=== PATIENT | male | born 1950 | race Caucasian/White ===

== ENCOUNTER 2016-08-29 10:12 | Outpatient (CLI) | payer MEDICARE | END 2016-08-29 10:13 | disposition home or self-care (01) | DX: M79.672 Pain in left foot (principal); M79.671 Pain in right foot; M77.32 Calcaneal spur, left foot; M77.31 Calcaneal spur, right foot; M19.072 Primary osteoarthritis, left ankle and foot; M19.071 Primary osteoarthritis, right ankle and foot ==

== ENCOUNTER 2017-01-02 12:54 | Outpatient (CLI) | payer MEDICARE | END 2017-01-02 12:55 | disposition home or self-care (01) | LOC: NS 12:54 | PROVIDERS: ATTEND Urology | DX: Z71.3 Dietary counseling and surveillance (principal); N17.9 Acute kidney failure, unspecified; N20.0 Calculus of kidney; Z68.32 Body mass index [BMI] 32.0-32.9, adult | CPT/HCPCS: 97802 ==

== ENCOUNTER 2017-02-03 11:56 | Inpatient (IN) | payer MEDICARE ==
[2017-02-03] MEDS ORDERED: SODIUM CHLORIDE 0.9% 1,000 ML IV ONE (12:57)
[2017-02-03] MEDS ORDERED: cefTRIAXone 1 GM in SODIUM CHLORIDE 0.9% MINIBAG 100 ML IV STA (12:57)
--- NOTE | 2017-02-03 13:00 | ED Physician Documentation ---
PD HPI DYSPNEA - Stated complaint Stated Complaint: SOA - Chief complaint Chief Complaint: Resp - History obtained from History obtained from: Patient, Family - History of Present Illness Timing - onset: How many days ago (4) Timing - onset during: Rest Timing - duration: Days (4) Timing - details: Gradual onset, Still present Inciting event(s): URI Improved by: O2, Rest Worsened by: Exertion, Coughing Associated symptoms: Fever, Cough, Hemoptysis Similar symptoms before: Diagnosis (pneumonia) Recently seen: Clinic (sent here from the clinic by Dr. Martinez) - Additional information Additional information: 67-year-old male on Humira for Crohn's disease has developed a cough andAbout 4 days ago he has had persistence of this he has had fever he has had some blood- tinged sputum he has had some blood in his urine he has had a bit of nausea and vomiting and he has a bit of a headache. He has improvement with oxygen administered here in the emergency department. He was seen by his PMD today and she sent him here for evaluation. Review of Systems Constitutional: reports: Fever, Chills, Myalgias, Fatigue, Sweats Eyes: denies: Decreased vision Ears: denies: Ear pain Nose: denies: Rhinorrhea / runny nose, Congestion Throat: denies: Sore throat Cardiac: denies: Chest pain / pressure, Palpitations Respiratory: reports: Dyspnea, Cough GI: reports: Nausea, Vomiting. denies: Abdominal Pain : reports: Hematuria. denies: Dysuria, Frequency Skin: denies: Rash Musculoskeletal: denies: Neck pain, Back pain, Extremity pain Neurologic: reports: Generalized weakness, Headache. denies: Focal weakness, Numbness, Head injury, LOC PD PAST MEDICAL HISTORY - Past Medical History Cardiovascular: Hypertension Respiratory: None Neuro: Fainting Endocrine/Autoimmune: None GI: Colon polyps HEENT: None Psych: None Musculoskeletal: Gout Derm: 11 - Past Surgical History Past Surgical History: Yes General: Appendectomy, Hiatal hernia repair Ortho: Spine surgery - Present Medications Home Medications: Ambulatory Orders Medication Instructions Recorded Confirmed Allopurinol [Zyloprim] 100 mg PO DAILY 10/14/12 02/03/17 B12 1 tab ORAL DAILY 10/14/12 02/03/17 Metoprolol Succinate [Toprol Xl] 25 mg PO BID 10/14/12 02/03/17 Adalimumab [Humira] 40 mg SQ DAILY 02/03/17 02/03/17 Calcium Citrate 200 mg PO DAILY 02/03/17 02/03/17 Oxybutynin Chloride [Ditropan Xl] 15 mg PO DAILY 02/03/17 02/03/17 Tamsulosin [Flomax] 0.4 mg PO DAILY 02/03/17 02/03/17 - Allergies Allergies/Adverse Reactions: Allergies Allergy/AdvReac Type Severity Reaction Status Date / Time No Known Drug Allergies Allergy Verified 02/03/17 12:12 - Social History Does the pt smoke?: Yes Smoking Status: Former smoker Does the pt drink ETOH?: Yes Does the pt have substance abuse?: No - Immunizations Immunizations are current?: Yes - POLST Patient has POLST: No PD ED PE NORMAL - Vitals Vital signs reviewed: Yes (Febrile and hypertensive) - General General: Alert and oriented X 3, Well developed/nourished, Other (The patient appears flushed.) - HEENT HEENT: Atraumatic, PERRL, EOMI, Other (The right TM is erythematous along the umbo with rounding of the umbo the left is clear the pharynx is with dry mucous membranes.) - Neck Neck: Supple, no meningeal sign, No bony TTP - Cardiac Cardiac: RRR, No murmur - Respiratory Respiratory: Other (Tachypnea at rest with rhonchi in the left base.) - Abdomen Abdomen: Normal bowel sounds, Soft, Non tender, No organomegaly - Back Back: No CVA TTP, No spinal TTP - Derm Derm: Normal color, Warm and dry, No rash - Extremities Extremities: No deformity, No edema - Neuro Neuro: No motor deficit, No sensory deficit, Normal speech - Psych Psych: Normal mood, Normal affect Results - Vitals Vitals: Vital Signs - 24 hr 02/03/17 02/03/17 02/03/17 12:07 12:35 12:57 Temperature 38.6 C H Heart Rate 100 96 Respiratory 22 28 H 20 Rate Blood Pressure 139/69 H 148/61 H O2 Saturation 94 91 L 96 02/03/17 13:33 Temperature 39.4 C H Heart Rate 96 Respiratory 30 H Rate Blood Pressure 139/72 H O2 Saturation 94 Oxygen O2 Source Nasal cannula Oxygen Flow Rate 2 - Labs Labs: Laboratory Tests 02/03/17 02/03/17 02/03/17 13:00 13:00 13:00 WBC 11.3 H RBC 4.53 L Hgb 14.3 Hct 41.5 L MCV 91.6 MCH 31.6 H MCHC 34.5 RDW 13.4 Plt Count 104 L MPV 9.5 Manual Slide Review Indicated Sodium 133 L Potassium 3.0 L Chloride 101 Carbon Dioxide 20 L Anion Gap 12.0 BUN 25 H Creatinine 2.5 H Estimated GFR (MDRD) 26 L Glucose 119 H Lactic Acid Calcium 8.7 Total Bilirubin 1.7 H AST 40 ALT 38 Alkaline Phosphatase 96 Troponin I < 0.04 Total Protein 7.9 Albumin 3.7 Globulin 4.2 Albumin/Globulin Ratio 0.9 L Lipase 48 02/03/17 13:00 WBC RBC Hgb Hct MCV MCH MCHC RDW Plt Count MPV Manual Slide Review Sodium Potassium Chloride Carbon Dioxide Anion Gap BUN Creatinine Estimated GFR (MDRD) Glucose Lactic Acid < 0.3 L Calcium Total Bilirubin AST ALT Alkaline Phosphatase Troponin I Total Protein Albumin Globulin Albumin/Globulin Ratio Lipase - Rads (name of study) 2 view chest Radiology: Prelim report reviewed (Impression: Patchy airspace consolidation left lower lobe consistent with pneumonia, possibly aspiration pneumonia. Chronic blunting left costophrenic sulcus laterally, stable. No evidence of effusion or other abnormality bilaterally.), EMP read indepedently, See rad report Procedures - IVC sono (time) 1255 Bedside IVC sono: IVC measures (cm) (1.18), IVC collapsed c insp (cm) (complete) , Dehydration PD MEDICAL DECISION MAKING - ED course Complexity details: reviewed old records, reviewed results, re-evaluated patient , considered differential, d/w patient, d/w family ED course: 67 y/o male on humira with fever and rhonchi with hypoxia appears ill and improves with nasal cannula oxygen. He has infiltrate on his chest x-ray on the left side correlating with findings on examination. He is given IV Rocephin and IV saline and oral potassium. He has fever, hypoxia (91% RA), elevated WBC, infiltrate and he is immunsuppressed. The hospitalist is contacted about admission. Dr. Pastrana is consulted in the case and will care for the patient in the hospital. Departure - Departure Disposition: 66 [facility] DC/Xfer Clinical Impression: Pneumonia Qualifiers: Pneumonia type: due to unspecified organism Laterality: left Lung location: lower lobe of lung Qualified Code(s): J18.1 - Lobar pneumonia, unspecified organism Condition: Stable
[2017-02-03] MEDS ORDERED: cefTRIAXone 1 GM VIAL ONE (13:04)
[2017-02-03] MEDS ORDERED: SODIUM CHLORIDE FLUSH 0.9% 10 ML SYRINGE IVP ONE (13:04)
[2017-02-03 13:10] LABS: BASOPHILS % (AUTO) 0.4 %; HCT - HEMATOCRIT 41.5 % (42.0-52.0); HGB - HEMOGLOBIN 14.3 g/dL (14.0-18.0); LYMPHOCYTES # (AUTO) 0.6 10^3/uL (1.5-3.5); LYMPHOCYTES % (AUTO) 5.4 %; MEAN CORPUSCULAR HEMOGLOBIN 31.6 pg (27.0-31.0); MEAN CORPUSCULAR HGB CONC 34.5 g/dL (32.0-36.0); MEAN CORPUSCULAR VOLUME 91.6 fL (80.0-94.0); MEAN PLATELET VOLUME 9.5 fL (7.4-11.4); MONOCYTES # (AUTO) 2.1 10^3/uL (0.0-1.0); MONOCYTES % (AUTO) 18.2 %; NEUTROPHILS # (AUTO) 8.6 10^3/uL (1.5-6.6); NUCLEATED RED BLOOD CELLS AUTO 0.1 /100WBC; RED BLOOD COUNT 4.53 10^6/uL (4.70-6.10); RED CELL DISTRIBUTION WIDTH 13.4 % (12.0-15.0); UNCORRECTED WHITE BLOOD COUNT 11.3 x10^3/uL; WHITE BLOOD COUNT 11.3 x10^3/uL (4.8-10.8)
[2017-02-03 13:17] LABS: ALBUMIN/GLOBULIN RATIO 0.9 (1.0-2.2); BILIRUBIN,TOTAL 1.7 mg/dL (0.2-1.0); CALCIUM 8.7 mg/dL (8.5-10.3); CREATININE 2.5 mg/dL (0.6-1.2); TOTAL PROTEIN 7.9 g/dL (6.7-8.2)
[2017-02-03] MEDS ORDERED: POTASSIUM BICARB 25 MEQ TABLET PO STA (13:22)
[2017-02-03] MEDS ORDERED: POTASSIUM BICARB 25 MEQ TABLET PO ONE (13:33)
[2017-02-03] MEDS ORDERED: ACETAMINOPHEN 500 MG TABLET PO STA (13:36)
[2017-02-03] MEDS ORDERED: ACETAMINOPHEN 500 MG TABLET PO ONE (13:42)
--- NOTE | 2017-02-03 14:20 | XRAY Preliminary Report ---
Exam: XR Chest 2 View PA/LAT IMPRESSION: Patchy airspace consolidation left lower lobe consistent with pneumonia, possibly aspirat ion pneumonia. Chronic blunting left costophrenic sulcus laterally, stable. No evident effusion or other abnormality bilaterally. [facility] SITE ID: [id number]
--- NOTE | 2017-02-03 14:22 | XRAY Report ---
EXAM: CHEST RADIOGRAPHY, 2 VIEWS EXAM DATE: 02/03/2017 02:05 PM. CLINICAL HISTORY: Cough, SOA and fever in a 67-year-old male. COMPARISON: PA chest from a right rib series of 07/20/2014 and earlier exams.. TECHNIQUE: Sitting AP and lateral views. FINDINGS: Lungs/Pleura: Patchy airspace consolidation left mid to lower lung. Chronic blunting of left costophr enic sulcus, stable. Right lung is clear. Left upper lobe appears clear. No pneumothorax bilaterally. Mediastinum: Heart and mediastinal contours are unremarkable. Other: Trachea is midline. Osseous structures are unremarkable. IMPRESSION: Patchy airspace consolidation left lower lobe consistent with pneumonia, possibly aspirat ion pneumonia. Chronic blunting left costophrenic sulcus laterally, stable. No evident effusion or other abnormality bilaterally. [facility] Referring Provider Line: [phone] SITE ID: [id number]
[2017-02-03 14:28] LABS: PLATELET ESTIMATE, MANUAL NORMAL (130-450,000) (NORMAL); PLATELET MORPHOLOGY NORMAL APPEARANCE (NORMAL)
[2017-02-03 14:29] LABS: TOTAL CELLS COUNTED 100
[2017-02-03 14:30] LABS: BASOPHILS % (MANUAL) 1 %; LYMPHOCYTES % (MANUAL) 6 %
[2017-02-03 14:31] LABS: BAND NEUTROPHILS % (MANUAL) 20 %
[2017-02-03 14:32] LABS: NEUTROPHILS % (MANUAL) 52 %; NP AUTO DIFFERENTIAL? NO; NP MAN DIFFERENTIAL? NO
[2017-02-03 14:41] LABS: BILIRUBIN,URINE NEGATIVE (NEGATIVE)
[2017-02-03 14:42] LABS: UA w/ MICROSCOPIC CHARGE YES
[2017-02-03 14:48] LABS: UR CULTURE IF IND NOT INDICATED; WBC,URINE 0-3 /HPF (0-3)
[2017-02-03] MEDS ORDERED: ONDANSETRON 4 MG/2 ML VIAL IVP PRN (15:30)
[2017-02-03] MEDS ORDERED: AZITHROMYCIN INJ 500 MG in SODIUM CHLORIDE 0.9% 250 ML IV STA (15:41)
[2017-02-03] MEDS ORDERED: POTASSIUM CHLORIDE 20 MEQ TABLET PO STA (15:48)
[2017-02-03] MEDS ORDERED: SODIUM CHLORIDE 0.9% 1,000 ML IV SCH (16:00)
--- NOTE | 2017-02-03 16:09 | HISTORY & PHYSICAL EXAMINATION ---
Chief Complaint - Chief Complaint Chief Complaint: fever and cough History of Present Illness - Admitted From Admitted From:: emergence department - History Obtained From History obtained from: patient - History of Present Illness HPI Comment/Other: This is a pleasant 67-year-old male with significant past medical history of Croh's disease, HTN, Chronic kidney disease, prostate cancer, bladder cancer and kidney cancer, who present emergence department for evaluation of fever and cough since last night. Patient state he has been feeling significant tired for recent 4 days. Last night he report he developed fever at 104 degree with cough with sputum, and mild to moderate shortness of breathing. Patient also report his sputum is stained with very small blood and his urine is contained small blood "you can see it." Patient report he has Croh' s disease since 1977. He had the medicine of [place] since one and half year ago. He has no problem with this medicine. 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 Patient report he stopped cigarette smoking 15 years ago. patient denies chest pain, abdominal pain, nausea, vomiting, diarrhea, dysuria, vision changing issue. CXR reveals left lower lobe with patchy airspace consolidation. UA reveal moderate blood staining and high protein 100 containing, without UTI Lab test significantly reveals potassium 3, Sodium 133, BUN 25 and Creatinine 2.5 which was 15/1.6 on 04/2016, WBC 11.3 Patient is admitted for evaluation of pneumonia and acute on chronic renal insufficiency. Review of Systems - Constitutional Constitutional: reports: Fatigue, Fever, Chills. denies: Malaise, Poor appetite , Diaphoresis, Night sweats, Weight gain, Weight loss - Eyes Eyes: denies: Pain, Irritation, Amaurosis, Blurred vision, Spots in vision, Field loss, Vision loss, Dipolpia - Ears, Nose & Throat Ears, Nose & Throat: denies: Ear pain, Hearing loss, Hearing aids, Tinnitus, Vertigo, Nosebleeds, Sore throat, Hoarseness, Bleeding gums - Cardiovascular Cariovascular: denies: Irregular heart rate, Palpitations, Chest pain, Edema, Lightheadedness, Syncope, Exertional dyspnea - Respiratory Respiratory: reports: Cough, Sputum production, Hemoptysis, SOB at rest (mild). denies: Wheezing, Snoring, Orthopnea, SOB with exertion, Apnea, Stridor, Pleuritic pain - Gastrointestinal Gastrointestinal: denies: Abdominal pain, Abdominal distention, Constipation, Diarrhea, Change in bowel habits, Rectal bleeding, Black stools, Bloody stools, Nausea, Vomiting, Artemio blood emesis, Coffee grounds emesis - Genitourinary Genitourinary: reports: Hematuria. denies: Dysuria, Frequency, Urgency, Incontinence, Flank pain, Nocturia, Urethral discharge - Musculoskeletal Musculoskeletal: reports: Gout. denies: Muscle pain, Back pain, Muscle aches, Stiffness, Limited range of motion, Muscle weakness, Joint pain - Integumentary Integumentary: denies: Rash, Pruritis, Lesions, Pigment changes - Neurological Neurological: denies: General weakness, Focal weakness, Headache, Dizziness, Numbness, Pre-existing deficit, Abnormal gait, Seizures, Incoordination, Slurred speech - Psychiatric Psychiatric: denies: Depression, Anxiety, Suicidal, Delusions, Hallucinations, Homicidal - Endocrine Endocrine: denies: Polyuria, Polydypsia, Polyphagia, Intolerance to cold - Hematologic/Lymphatic Hematologic/Lymphatic: denies: Anemia, Bruising, Petechiae, Blood clots, Lymphadenopathy, Bleeding tendencies, Recurrent infections History - Past Medical History Cardiovascular: reports: Hypertension Respiratory: reports: None Neuro: reports: Fainting Endocrine/Autoimmune: reports: None GI: reports: Colon polyps HEENT: reports: None Psych: reports: None Musculoskeletal: reports: Gout Derm: MRSA Hx?: No - Past Surgical History General: reports: Appendectomy, Hiatal hernia repair Ortho: reports: Spine surgery - Family & Social History Family History: Mother: Alive and Well (93 years old, health), Father: ( at 76 yrs, from aneursym) Family History Comment/Other: no child Living arrangement: At home Living Situation: With spouse/s.o. Social History Notes: patient retired. Patient report he quitted cigarette smoking 15 years ago, social drinking without withdrawal, denies illicit drug - Substance History Use: Uses substance without health or social issues: NONE Abuse: Recurrent use of substance despite neg consequences: NONE Dependence: Experiences withdrawal or developed tolerances: NONE - POLST Patient has POLST: No POLST Status: Full Code Meds/Allgy - Home Medications Home Medications: Ambulatory Orders Medication Instructions Recorded Confirmed Allopurinol [Zyloprim] 100 mg PO DAILY 10/14/12 02/03/17 Metoprolol Succinate [Toprol Xl] 25 mg PO BID 10/14/12 02/03/17 Adalimumab [Humira] 40 mg SQ UD 02/03/17 02/03/17 Cyanocobalamin (Vitamin B-12) 1,000 mcg PO DAILY 02/03/17 02/03/17 [Vitamin B-12 (1000 mcg sublingual)] Oxybutynin Chloride [Ditropan Xl] 15 mg PO DAILY 02/03/17 02/03/17 Tamsulosin [Flomax] 0.4 mg PO DAILY 02/03/17 02/03/17 - Allergies Allergies/Adverse Reactions: Allergies Allergy/AdvReac Type Severity Reaction Status Date / Time No Known Drug Allergies Allergy Verified 02/03/17 12:12 Exam - Vital Signs Reviewed Vital Signs: Yes Vital Signs: Vital Signs x48h Temp Pulse Resp BP Pulse Ox 02/03/17 13:33 39.4 C H 96 30 H 139/72 H 94 02/03/17 12:57 96 20 148/61 H 96 02/03/17 12:35 28 H 91 L 02/03/17 12:07 38.6 C H 100 22 139/69 H 94 - Physical Exam General Appearance: positive: No acute distress, Alert. negative: Lethargic Eyes Bilateral: positive: Normal inspection, PERRL. negative: No lid inflammation, Conjunctivae nml ENT: positive: ENT inspection nml, Pharynx nml, No signs of dehydration. negative: Purulent nasal drainage, Pharyngeal erythema Neck: positive: Nml inspection, Thyroid nml, No JVD, Trachea midline. negative : Thyromegaly, Lymphadenopathy (R), Lymphadenopathy (L), Stiff neck, Swelling/ bruising, Tracheal deviation Respiratory: positive: Chest non-tender, No respiratory distress, Other ( diminished long sound at left lower lobe) Cardiovascular: positive: Regular rate & rhythm, No murmur, No gallop. negative : Tachycardia, Bradycardia, Systolic murmur, Diastolic murmur Peripheral Pulses: positive: 2+ Abdomen: positive: Non-tender, No organomegaly, Nml bowel sounds, No distention. negative: Tenderness, Guarding, Rebound Back: positive: Nml inspection. negative: CVA tenderness (R), CVA tenderness (L ) Skin: positive: Color nml, No rash, Warm, Dry. negative: Pallor, Skin rash, Embolic lesions Extremities: positive: Non-tender, Full ROM, Nml appearance. negative: Calf tenderness, Praveen's sign/cords Neurologic/Psychiatric: positive: Oriented x3, Motor nml, Sensation nml, Mood/ affect nml. negative: Sensory loss, Facial droop, Slurred/abnml speech, Depressed mood/affect Conclusion/Plan - Problem List (1) Pneumonia Conclusion/Plan: CXR reveals left lung lower lobe pneumonia. pt is living at home, no recent traveling blood and sputum culture, follow up the result rocephin and azithyromycion, will adjust dosage with renal insufficiency Qualifiers: Pneumonia type: due to unspecified organism Laterality: left Lung location: lower lobe of lung Qualified Code(s): J18.1 - Lobar pneumonia, unspecified organism (2) Fever Conclusion/Plan: it appear caused by pneumonia, UA negative for UTI, lactic acid less then 0.4, slight elevated WBC Tylenol PRN IVF daily lab test of CBC and CMP (3) Acute on chronic renal insufficiency Conclusion/Plan: test CPK. IVF daily lab to check kidney function hold nephrotoxic agents, and hydration (4) Hematuria Conclusion/Plan: UA reveals moderate bloody urine, pt with history of prostate, bladder, and kidney caner, HGB is normal. US of kidney, bladder will follow up H&H (5) Hemoptysis Conclusion/Plan: with pt's history of cancer, and smoking history CT of chest, will follow up (6) HTN (hypertension) Conclusion/Plan: stable, resume home meds (7) Crohns disease Conclusion/Plan: pt denies abdominal pain, n/v/d Humira is scheduled another two weeks, pt was given on last week, hold Humira now. (8) Hypokalemia Conclusion/Plan: K is 3 today, replacement of potassium, recheck potassium daily (9) DVT prophylaxis Conclusion/Plan: pt walk without limitation, SCD only now - Lab Results Fish Bones: 02/03/17 13:00 02/03/17 13:00 Issues/Core Measures - Anticipated LOS Anticipated Stay Length: 2 or more midnights (pneumonia with hematuria, acute on CKD, expect 2 or more days)
[2017-02-03] MEDS: SODIUM CHLORIDE FLUSH 0.9% 10 ML SYRINGE IVP SCH (17:32)
[2017-02-03] MEDS: ACETAMINOPHEN 325 MG TABLET PO PRN ×2 (17:47→21:59)
[2017-02-03] MEDS: SODIUM CHLORIDE 0.9% 1,000 ML IV SCH (18:55)
--- NOTE | 2017-02-03 21:52 | Ultrasound Preliminary Report ---
Exam: US Retroperitoneal IMPRESSION: 1. Status post right nephrectomy. 2. 2 cm left upper renal cyst. No concerning features. No left renal mass, stones or hydronephrosis. 3. Normal left ureter. Bladder is normal. [facility] SITE ID: [id number]
[2017-02-03] MEDS: METOPROLOL SUCCINATE 25 MG TABLET PO SCH (22:00)
[2017-02-03] MEDS: OXYBUTYNIN 5MG TABLET PO SCH ×2 (22:00→22:26)
--- NOTE | 2017-02-03 22:18 | Ultrasound Report ---
EXAM: RENAL ULTRASOUND EXAM DATE: 02/03/2017 09:34 PM. CLINICAL HISTORY: Hematuria. COMPARISON: 02/14/2015. TECHNIQUE: Real-time scanning was performed with static images obtained. FINDINGS: Right Kidney: Surgically absent. Left Kidney: 14.7 x 7.4 x 7.6 cm. 2 x 1.3 x 2 cm superior left renal simple cyst. No concerning sonog raphic features. Bladder: Normal left ureteral jet. No right ureteral jet in this patient with surgically absent right kidney. Grossly, the bladder is normal. The prevoid bladder volume was 107 mL. The postvoid bladder volume was 5 mL. IMPRESSION: 1. Status post right nephrectomy. 2. 2 cm left upper renal cyst. No concerning features. No left renal mass, stones or hydronephrosis. 3. Normal left ureteral jet. Bladder is normal. [facility] Referring Provider Line: [phone] SITE ID: [id number]
[2017-02-03] MEDS: SODIUM CHLORIDE FLUSH 0.9% 10 ML SYRINGE IVP PRN ×2 (22:32→22:54)
[2017-02-04 01:17] LABS: HCT - HEMATOCRIT 38.8 % (42.0-52.0); HGB - HEMOGLOBIN 13.3 g/dL (14.0-18.0)
--- NOTE | 2017-02-04 01:33 | CT Preliminary Report ---
Exam: CT Chest W/O IMPRESSION: 1. Left lower lobe airspace opacity suggesting pneumonia or aspiration, with small left pleural effus ion. Follow-up imaging is needed to document resolution and rule out malignancy. 2. Fatty liver and splenomegaly. [facility] SITE ID: [id number]
[2017-02-04] MEDS: SODIUM CHLORIDE 0.9% 1,000 ML IV SCH ×3 (01:35→19:00)
[2017-02-04] MEDS: ACETAMINOPHEN 325 MG TABLET PO PRN ×5 (01:35→20:52)
--- NOTE | 2017-02-04 01:36 | CT Report ---
EXAM: CT CHEST EXAM DATE: 02/03/2017 10:51 PM. CLINICAL HISTORY: Hemoptysis. Right nephrectomy in 1999. COMPARISONS: None. TECHNIQUE: Routine helical CT imaging was performed through the chest. IV contrast: None. Reconstruct ions: Coronal and sagittal. In accordance with CT protocol optimization, one or more of the following dose reduction techniques w ere utilized for this exam: automated exposure control, adjustment of mA and/or KV based on patient s ize, or use of iterative reconstructive technique. FINDINGS: Lungs/Pleura: Left lower lobe airspace opacity consistent with pneumonia or aspiration. Differential diagnosis would include pulmonary hemorrhage or malignant process. Small left pleural effusion. Minim al right lower lobe atelectasis. No pneumothorax. Mediastinum: Heart size is normal. Normal sized mediastinal lymph nodes. Bones: Degenerative changes in the spine. Visualized Abdomen: Possible fatty liver. Splenomegaly measuring 15.7 cm. Status post right nephrecto my. Other: None. IMPRESSION: 1. Left lower lobe airspace opacity suggesting pneumonia or aspiration, with small left pleural effus ion. Follow-up imaging is needed to document resolution and rule out malignancy. 2. Fatty liver and splenomegaly. [facility] Referring Provider Line: [phone] SITE ID: [id number]
[2017-02-04] MEDS: SODIUM CHLORIDE FLUSH 0.9% 10 ML SYRINGE IVP SCH ×3 (05:20→20:53)
[2017-02-04] MEDS: OXYBUTYNIN 5MG TABLET PO SCH ×3 (05:22→20:52)
[2017-02-04 05:56] LABS: BASOPHILS % (AUTO) 0.3 %; HCT - HEMATOCRIT 40.5 % (42.0-52.0); HGB - HEMOGLOBIN 13.6 g/dL (14.0-18.0); LYMPHOCYTES # (AUTO) 0.7 10^3/uL (1.5-3.5); LYMPHOCYTES % (AUTO) 7.6 %; MEAN CORPUSCULAR HEMOGLOBIN 31.6 pg (27.0-31.0); MEAN CORPUSCULAR HGB CONC 33.6 g/dL (32.0-36.0); MEAN PLATELET VOLUME 9.7 fL (7.4-11.4); MONOCYTES # (AUTO) 1.3 10^3/uL (0.0-1.0); NEUTROPHILS # (AUTO) 7.6 10^3/uL (1.5-6.6); NEUTROPHILS % (AUTO) 79.1 %; NUCLEATED RED BLOOD CELLS AUTO 0.1 /100WBC; RED CELL DISTRIBUTION WIDTH 13.4 % (12.0-15.0); UNCORRECTED WHITE BLOOD COUNT 9.6 x10^3/uL; WHITE BLOOD COUNT 9.6 x10^3/uL (4.8-10.8)
[2017-02-04 06:04] LABS: ALBUMIN/GLOBULIN RATIO 0.9 (1.0-2.2); BILIRUBIN,TOTAL 0.9 mg/dL (0.2-1.0); CALCIUM 8.1 mg/dL (8.5-10.3); CREATININE 2.5 mg/dL (0.6-1.2); MAGNESIUM 1.6 mg/dL (1.7-2.8); POTASSIUM 3.4 mmol/L (3.5-5.0); TOTAL PROTEIN 7.1 g/dL (6.7-8.2)
[2017-02-04] MEDS ORDERED: cefTRIAXone 1 GM VIAL IVP SCH (09:00)
[2017-02-04] MEDS ORDERED: MAGNESIUM OXIDE 400 MG TABLET PO ONE (09:00)
[2017-02-04] MEDS ORDERED: cefTRIAXone 1 GM VIAL IV SCH (09:00)
[2017-02-04] MEDS ORDERED: POTASSIUM CHLORIDE 20 MEQ TABLET PO SCH (09:00)
[2017-02-04 09:32] LABS: HCT - HEMATOCRIT 40.9 % (42.0-52.0); HGB - HEMOGLOBIN 14.1 g/dL (14.0-18.0)
[2017-02-04] MEDS: AZITHROMYCIN INJ 500 MG in SODIUM CHLORIDE 0.9% 250 ML IV SCH (09:41)
[2017-02-04] MEDS: CYANOCOBALAMIN 500 MCG TABLET PO SCH (10:06)
[2017-02-04] MEDS: CALCIUM CITRATE 250 MG TABLET PO SCH (10:06)
[2017-02-04] MEDS: ALLOPURINOL 100 MG TABLET PO SCH (10:07)
[2017-02-04] MEDS: TAMSULOSIN 0.4 MG CAPSULE PO SCH (10:07)
[2017-02-04] MEDS: METOPROLOL SUCCINATE 25 MG TABLET PO SCH ×2 (10:07→20:52)
[2017-02-04] MEDS: FAMOTIDINE 20 MG TABLET PO SCH (10:08)
[2017-02-04] MEDS: POLYETHYLENE GLYCOL 3350 17 GM PACKET PO SCH (10:08)
[2017-02-04 10:19] LABS: INR 1.4 (0.8-1.2); PT - PROTHROMBIN TIME 16.1 secs (9.9-12.6)
--- NOTE | 2017-02-04 12:45 | PROVIDER PROGRESS NOTE ---
Subjective - Prog Note Date Prog Note Date: 02/04/17 - Subjective Pt reports feeling: Improved Subjective: pt report he feel much better comparing with his coming. Pt report he still had fever, chill on last night. No chest pain, abdominal pain, nausea and vomiting. Pt report diarrhea and black stool as well. Current Medications - Current Medications Current Medications: Active Medications Acetaminophen (Tylenol) 650 mg PO Q4HR PRN PRN Reason: Pain 1 to 4 Last Admin: 02/04/17 09:41 Dose: 650 mg Allopurinol (Zyloprim) [address] [facility] Last Admin: 02/04/17 10:07 Dose: 100 mg Calcium Citrate () [address] [facility] Last Admin: 02/04/17 10:06 Dose: 250 mg Cyanocobalamin (Vitamin B-12) 1,[address] [facility] Last Admin: 02/04/17 10:06 Dose: 1,000 mcg Famotidine (Pepcid) [address] [facility] Last Admin: 02/04/17 10:08 Dose: 20 mg Ceftriaxone Sodium 1 gm/ (Sodium Chloride) 50 mls @ 100 mls/hr IV DAILY [facility] Last Admin: 02/04/17 09:41 Dose: 100 mls/hr Azithromycin 500 mg/ Sodium (Chloride) 250 mls @ 250 mls/hr IV DAILY [facility] Last Admin: 02/04/17 09:41 Dose: 250 mls/hr Sodium Chloride (Normal Saline 0.9%) 1,000 mls @ 125 mls/hr IV .Q8H [facility] Last Admin: 02/04/17 09:40 Dose: 125 mls/hr Metoprolol Succinate (Toprol Xl) [address] [facility] Last Admin: 02/04/17 10:07 Dose: 25 mg Ondansetron HCl (Zofran Inj) 4 mg IVP Q6HR PRN PRN Reason: Nausea / Vomiting Oxybutynin Chloride (Ditropan) [address] [facility] Last Admin: 02/04/17 05:22 Dose: 5 mg Polyethylene Glycol (Miralax) [address] [facility] Last Admin: 02/04/17 10:08 Dose: Not Given Potassium Chloride (K-Dur) [address] [facility] Last Admin: 02/04/17 10:05 Dose: 40 meq Sodium Chloride (Normal Saline Flush 0.9%) 10 ml IVP PRN PRN PRN Reason: NEEDED PER PROVIDER ORDERS Last Admin: 02/03/17 22:54 Dose: 10 ml Sodium Chloride (Normal Saline Flush 0.9%) [address] [facility] Last Admin: 02/04/17 05:20 Dose: Not Given Tamsulosin HCl (Flomax) 0.[address] [facility] Last Admin: 02/04/17 10:07 Dose: 0.4 mg Allopurinol [Zyloprim] 100 mg PO DAILY 10/14/12 Metoprolol Succinate [Toprol Xl] 25 mg PO BID 10/14/12 Adalimumab [Humira] 40 mg SQ UD 02/03/17 Cyanocobalamin (Vitamin B-12) [Vitamin B-12 (1000 mcg sublingual)] 1,000 mcg PO DAILY 02/03/17 Oxybutynin Chloride [Ditropan Xl] 15 mg PO DAILY 02/03/17 Tamsulosin [Flomax] 0.4 mg PO DAILY 02/03/17 Objective - Vital Signs/Intake & Output Reviewed Vital Signs: Yes Vital Signs: Vital Signs x48h Temp Pulse Resp BP Pulse Ox 02/04/17 09:35 38.9 C H 02/04/17 08:21 37.5 C 80 18 131/61 H 95 02/04/17 06:25 38.1 C H 02/04/17 05:20 39.2 C H Intake & Output: Intake & Output 02/01/17 02/02/17 02/03/17 02/04/17 23:59 23:59 23:59 23:59 Intake Total 1720 1781 Output Total 330 600 Balance 1390 1181 - Objective General Appearance: positive: No acute distress, Alert. negative: Lethargic Eyes Bilateral: positive: Normal inspection, PERRL, EOMI. negative: No lid inflammation, Conjunctivae nml, No scleral icterus ENT: positive: ENT inspection nml, Pharynx nml, No signs of dehydration. negative: Purulent nasal drainage, Pharyngeal erythema Neck: positive: Nml inspection, Thyroid nml, Trachea midline. negative: Thyromegaly, Lymphadenopathy (R), Lymphadenopathy (L), Stiff neck, Swelling/ bruising, Tracheal deviation Respiratory: positive: Chest non-tender, No respiratory distress, Other ( diminished lung sound at left lower lobe). negative: Wheezes, Rales Cardiovascular: positive: Regular rate & rhythm, No murmur, No gallop. negative : Tachycardia, Bradycardia, Systolic murmur, Diastolic murmur Peripheral Pulses: 2+ Radial (R), 2+ Radial (L), 2+ Dorsalis pedis (R), 2+ Dorsalis pedis (L) Abdomen: positive: Non-tender, Nml bowel sounds, No distention. negative: Tenderness, Guarding, Rebound Back: positive: Nml inspection. negative: CVA tenderness (R), CVA tenderness (L ) Skin: positive: Color nml, Warm, Dry. negative: Cyanosis, Diaphoresis, Pallor Extremities: positive: Non-tender, Full ROM, Nml appearance. negative: Pedal edema, Calf tenderness, Praveen's sign/cords Neurologic/Psychiatric: positive: Oriented x3, Motor nml, Sensation nml, Mood/ affect nml. negative: Sensory loss, Facial droop, Slurred/abnml speech, Depressed mood/affect - Lab Results Fish Bones: 02/04/17 08:52 02/04/17 05:20 Other Labs: Lab Results x24hrs 02/04/17 02/04/17 02/04/17 Range/Units 09:47 08:52 08:52 WBC (4.8-10.8) x10^3/uL RBC (4.70-6.10) 10^6/uL Hgb 14.1 (14.0-18.0) g/dL Hct 40.9 L (42.0-52.0) % MCV (80.0-94.0) fL MCH (27.0-31.0) pg MCHC (32.0-36.0) g/dL RDW (12.0-15.0) % Plt Count (130-450) 10^3/uL MPV (7.4-11.4) fL Neut # (1.5-6.6) 10^3/uL Lymph # (1.5-3.5) 10^3/uL [place] # (0.0-1.0) 10^3/uL Eos # (0.0-0.7) 10^3/uL Baso # (0.0-0.1) 10^3/uL Absolute Nucleated RBC x10^3/uL Nucleated RBCs /100WBC PT 16.1 H (9.9-12.6) secs INR 1.4 H (0.8-1.2) Sodium (135-145) mmol/L Potassium (3.5-5.0) mmol/L Chloride (101-111) mmol/L Carbon Dioxide (21-32) mmol/L Anion Gap (6-13) BUN (6-20) mg/dL Creatinine (0.6-1.2) mg/dL Estimated GFR (MDRD) (>89) Glucose (70-100) mg/dL Calcium (8.5-10.3) mg/dL Magnesium (1.7-2.8) mg/dL Total Bilirubin (0.2-1.0) mg/dL AST (10-42) IU/L ALT (10-60) IU/L Alkaline Phosphatase (42-121) IU/L Total Creatine Kinase 169 (22-269) IU/L Total Protein (6.7-8.2) g/dL Albumin (3.2-5.5) g/dL Globulin (2.1-4.2) g/dL Albumin/Globulin Ratio (1.0-2.2) 02/04/17 02/04/17 02/04/17 Range/Units 05:20 05:20 01:11 WBC 9.6 (4.8-10.8) x10^3/uL RBC 4.30 L (4.70-6.10) 10^6/uL Hgb 13.6 L 13.3 L (14.0-18.0) g/dL Hct 40.5 L 38.8 L (42.0-52.0) % MCV 94.0 (80.0-94.0) fL MCH 31.6 H (27.0-31.0) pg MCHC 33.6 (32.0-36.0) g/dL RDW 13.4 (12.0-15.0) % Plt Count 86 L (130-450) 10^3/uL MPV 9.7 (7.4-11.4) fL Neut # 7.6 H (1.5-6.6) 10^3/uL Lymph # 0.7 L (1.5-3.5) 10^3/uL [place] # 1.3 H (0.0-1.0) 10^3/uL Eos # 0.0 (0.0-0.7) 10^3/uL Baso # 0.0 (0.0-0.1) 10^3/uL Absolute Nucleated RBC 0.01 x10^3/uL Nucleated RBCs 0.1 /100WBC PT (9.9-12.6) secs INR (0.8-1.2) Sodium 136 (135-145) mmol/L Potassium 3.4 L (3.5-5.0) mmol/L Chloride 104 (101-111) mmol/L Carbon Dioxide 22 (21-32) mmol/L Anion Gap 10.0 (6-13) BUN 28 H (6-20) mg/dL Creatinine 2.5 H (0.6-1.2) mg/dL Estimated GFR (MDRD) 26 L (>89) Glucose 98 (70-100) mg/dL Calcium 8.1 L (8.5-10.3) mg/dL Magnesium 1.6 L (1.7-2.8) mg/dL Total Bilirubin 0.9 (0.2-1.0) mg/dL AST 46 H (10-42) IU/L ALT 41 (10-60) IU/L Alkaline Phosphatase 79 (42-121) IU/L Total Creatine Kinase (22-269) IU/L Total Protein 7.1 (6.7-8.2) g/dL Albumin 3.3 (3.2-5.5) g/dL Globulin 3.8 (2.1-4.2) g/dL Albumin/Globulin Ratio 0.9 L (1.0-2.2) Assessment/Plan - Problem List (1) Pneumonia Impression: (1) Pneumonia Conclusion/Plan: CT of chest reveals left lung pneumonia, will follow up image study to R/O malignancy repeat blood culture since pt continue to have fever, and just came inpatient last night. will follow up the test result continue with rocephin and azithromycin CXR reveals left lung lower lobe pneumonia. pt is living at home, no recent traveling blood and sputum culture, follow up the result rocephin and azithyromycion, will adjust dosage with renal insufficiency Qualifiers: Pneumonia type: due to unspecified organism Laterality: left Lung location: lower lobe of lung Qualified Code(s): J18.1 - Lobar pneumonia, unspecified organism (2) Fever Conclusion/Plan: still has fever, and chill. pt state he feel much better. closely monitor first 48 hours. Pt's lactic acid <0.5, on IVF 125, and antibiotics it appear caused by pneumonia, UA negative for UTI, lactic acid less then 0.4, slight elevated WBC Tylenol PRN IVF daily lab test of CBC and CMP (3) Acute on chronic renal insufficiency Conclusion/Plan: CPK normal, US of abdomen reveal unremarkable to kidney, bladder continue IVF, lab test test CPK. IVF daily lab to check kidney function hold nephrotoxic agents, and hydration (4) Hematuria Conclusion/Plan: resolved UA reveals moderate bloody urine, pt with history of prostate, bladder, and kidney caner, HGB is normal. US of kidney, bladder will follow up H&H (5) Hemoptysis Conclusion/Plan: pt state it is better"just a tinny bit." CT reveals left pneumonia, but will follow up another image study to r/o malignancy with pt's history of cancer, and smoking history CT of chest, will follow up (6) HTN (hypertension) Conclusion/Plan: stable, resume home meds (7) Crohns disease Conclusion/Plan: pt denies abdominal pain, n/v/d Humira is scheduled another two weeks, pt was given on last week, hold Humira now. (8) Hypokalemia Conclusion/Plan: K3.4, replacement of potassium K is 3 today, replacement of potassium, recheck potassium daily (9) black stool Occu blood staining test, if positive, will consult with surgeon. Now HGB 14.1, stable Monitor H&H (10) diarrhea sent sample for C.Diff PCR, follow up the result. continue IVF Qualifiers: Pneumonia type: due to unspecified organism Laterality: left Lung location: lower lobe of lung Qualified Code(s): J18.1 - Lobar pneumonia, unspecified organism
[2017-02-04 17:24] LABS: HCT - HEMATOCRIT 38.1 % (42.0-52.0); HGB - HEMOGLOBIN 12.7 g/dL (14.0-18.0)
[2017-02-05] MEDS: SODIUM CHLORIDE 0.9% 1,000 ML IV SCH ×3 (01:07→18:45)
--- NOTE | 2017-02-05 01:25 | CONSULTATION NOTE ---
Referring Provider Name of Referring Provider:: Mera Consult Date: 02/04/17 (I was asked to see the patient for a presumed upper GI bleed then not see him due to his current co-morbidities. The patient was not seen yet but consideration should be given to his "mab" therapy and stress due to his comorbidities contributing to the cause and exacerbation of his bleeding. I will see the patient when his condition has improved and he is cleared for scoping. Thank you.) History - Past Medical History Cardiovascular: reports: Hypertension Respiratory: reports: None Neuro: reports: Fainting Endocrine/Autoimmune: reports: None GI: reports: Colon polyps : reports: Incontinence, Frequency HEENT: reports: None Psych: reports: None Musculoskeletal: reports: Gout Derm: MRSA Hx?: No Other Past Medical History: Left ear only - Past Surgical History General: reports: Appendectomy, Hiatal hernia repair Ortho: reports: Spine surgery - Family & Social History Family History: Mother: Alive and Well (93 years old, health), Father: ( at 76 yrs, from aneursym) Living arrangement: At home Living Situation: With spouse/s.o. Social History Notes: patient retired. Patient report he quitted cigarette smoking 15 years ago, social drinking without withdrawal, denies illicit drug - Substance History Use: Uses substance without health or social issues: NONE Abuse: Recurrent use of substance despite neg consequences: NONE Dependence: Experiences withdrawal or developed tolerances: NONE - POLST Patient has POLST: No POLST Status: Full Code Meds/Allgy - Home Medications Home Medications: Ambulatory Orders Medication Instructions Recorded Confirmed Allopurinol [Zyloprim] 100 mg PO DAILY 10/14/12 02/03/17 Metoprolol Succinate [Toprol Xl] 25 mg PO BID 10/14/12 02/03/17 Adalimumab [Humira] 40 mg SQ UD 02/03/17 02/03/17 Cyanocobalamin (Vitamin B-12) 1,000 mcg PO DAILY 02/03/17 02/03/17 [Vitamin B-12 (1000 mcg sublingual)] Oxybutynin Chloride [Ditropan Xl] 15 mg PO DAILY 02/03/17 02/03/17 Tamsulosin [Flomax] 0.4 mg PO DAILY 02/03/17 02/03/17 - Allergies Allergies/Adverse Reactions: Allergies Allergy/AdvReac Type Severity Reaction Status Date / Time No Known Drug Allergies Allergy Verified 02/04/17 13:22 Exam - Vital Signs Vital Signs: Vital Signs x48h Temp Pulse Resp BP Pulse Ox 02/05/17 00:40 37.8 C H 02/04/17 23:40 37.8 C H 76 20 117/62 95 02/04/17 20:53 126/103 H 02/04/17 19:37 38.8 C H 87 21 131/63 H 94 Conclusion/Plan - Lab Results Fish Bones: 02/04/17 17:11 02/04/17 05:20
[2017-02-05 01:36] LABS: BASOPHILS % (AUTO) 0.5 %; EOSINOPHILS % (AUTO) 0.2 %; HCT - HEMATOCRIT 36.3 % (42.0-52.0); HGB - HEMOGLOBIN 12.2 g/dL (14.0-18.0); LYMPHOCYTES # (AUTO) 0.7 10^3/uL (1.5-3.5); LYMPHOCYTES % (AUTO) 13.5 %; MEAN CORPUSCULAR HEMOGLOBIN 31.6 pg (27.0-31.0); MEAN CORPUSCULAR HGB CONC 33.6 g/dL (32.0-36.0); MEAN PLATELET VOLUME 9.4 fL (7.4-11.4); MONOCYTES # (AUTO) 0.7 10^3/uL (0.0-1.0); MONOCYTES % (AUTO) 13.9 %; NEUTROPHILS # (AUTO) 3.7 10^3/uL (1.5-6.6); NEUTROPHILS % (AUTO) 71.9 %; RED BLOOD COUNT 3.86 10^6/uL (4.70-6.10); UNCORRECTED WHITE BLOOD COUNT 5.1 x10^3/uL; WHITE BLOOD COUNT 5.1 x10^3/uL (4.8-10.8)
[2017-02-05 01:43] LABS: ALBUMIN/GLOBULIN RATIO 0.9 (1.0-2.2); BILIRUBIN,TOTAL 0.5 mg/dL (0.2-1.0); CALCIUM 7.6 mg/dL (8.5-10.3); CREATININE 2.5 mg/dL (0.6-1.2); POTASSIUM 3.3 mmol/L (3.5-5.0); TOTAL PROTEIN 6.1 g/dL (6.7-8.2)
[2017-02-05] MEDS: ACETAMINOPHEN 325 MG TABLET PO PRN ×2 (05:03→15:47)
[2017-02-05] MEDS: OXYBUTYNIN 5MG TABLET PO SCH ×3 (05:03→21:03)
[2017-02-05] MEDS: SODIUM CHLORIDE FLUSH 0.9% 10 ML SYRINGE IVP SCH ×3 (05:04→21:04)
[2017-02-05] MEDS: POLYETHYLENE GLYCOL 3350 17 GM PACKET PO SCH (09:16)
[2017-02-05] MEDS: ALLOPURINOL 100 MG TABLET PO SCH (09:16)
[2017-02-05] MEDS: TAMSULOSIN 0.4 MG CAPSULE PO SCH (09:17)
[2017-02-05] MEDS: FAMOTIDINE 20 MG TABLET PO SCH (09:17)
[2017-02-05] MEDS: METOPROLOL SUCCINATE 25 MG TABLET PO SCH ×2 (09:17→21:03)
[2017-02-05] MEDS: CALCIUM CITRATE 250 MG TABLET PO SCH (09:18)
[2017-02-05] MEDS: CYANOCOBALAMIN 500 MCG TABLET PO SCH (09:19)
[2017-02-05 09:31] LABS: HCT - HEMATOCRIT 36.2 % (42.0-52.0); HGB - HEMOGLOBIN 12.3 g/dL (14.0-18.0)
[2017-02-05] MEDS: cefTRIAXone 1 GM in SODIUM CHLORIDE 0.9% MINIBAG 100 ML IV SCH (09:37)
[2017-02-05] MEDS ORDERED: CALCIUM GLUCONATE 1,000 MG in SODIUM CHLORIDE 0.9% 50 ML IV ONE (10:18)
--- NOTE | 2017-02-05 10:22 | PROVIDER PROGRESS NOTE ---
Subjective - Prog Note Date Prog Note Date: 02/05/17 - Subjective Pt reports feeling: Improved Subjective: pt report he feel much better, state "finally no fever today." Pt report he is no GI bleeding, normal stool color, no hematuria, no blood staining at sputum. Current Medications - Current Medications Current Medications: Active Medications Acetaminophen (Tylenol) 650 mg PO Q4HR PRN PRN Reason: Pain 1 to 4 Last Admin: 02/05/17 05:03 Dose: 650 mg Allopurinol (Zyloprim) 100 mg PO DAILY [facility] Last Admin: 02/05/17 09:16 Dose: 100 mg Calcium Citrate () 250 mg PO DAILY [facility] Last Admin: 02/05/17 09:18 Dose: 250 mg Cyanocobalamin (Vitamin B-12) 1,000 mcg PO DAILY [facility] Last Admin: 02/05/17 09:19 Dose: 1,000 mcg Famotidine (Pepcid) 20 mg PO DAILY [facility] Last Admin: 02/05/17 09:17 Dose: 20 mg Azithromycin 500 mg/ Sodium (Chloride) 250 mls @ 250 mls/hr IV DAILY [facility] Last Admin: 02/04/17 09:41 Dose: 250 mls/hr Sodium Chloride (Normal Saline 0.9%) 1,000 mls @ 125 mls/hr IV .Q8H [facility] Last Admin: 02/05/17 10:17 Dose: 125 mls/hr Ceftriaxone Sodium 1 gm/ (Sodium Chloride) 100 mls @ 200 mls/hr IV DAILY [facility] Last Admin: 02/05/17 09:37 Dose: 200 mls/hr Calcium Gluconate 1,000 mg/ (Sodium Chloride) 60 mls @ 240 mls/hr IV ONCE ONE Stop: 02/05/17 10:32 Metoprolol Succinate (Toprol Xl) 25 mg PO BID [facility] Last Admin: 02/05/17 09:17 Dose: 25 mg Ondansetron HCl (Zofran Inj) 4 mg IVP Q6HR PRN PRN Reason: Nausea / Vomiting Oxybutynin Chloride (Ditropan) 5 mg PO TID [facility] Last Admin: 02/05/17 05:03 Dose: 5 mg Polyethylene Glycol (Miralax) 17 gm PO DAILY [facility] Last Admin: 02/05/17 09:16 Dose: Not Given Potassium Chloride (K-Dur) 40 meq PO ONCE [facility] Stop: 02/05/17 14:00 Sodium Chloride (Normal Saline Flush 0.9%) 10 ml IVP PRN PRN PRN Reason: NEEDED PER PROVIDER ORDERS Last Admin: 02/03/17 22:54 Dose: 10 ml Sodium Chloride (Normal Saline Flush 0.9%) 10 ml IVP Q8HR [facility] Last Admin: 02/05/17 05:04 Dose: Not Given Tamsulosin HCl (Flomax) 0.4 mg PO DAILY [facility] Last Admin: 02/05/17 09:17 Dose: 0.4 mg Allopurinol [Zyloprim] 100 mg PO DAILY 10/14/12 Metoprolol Succinate [Toprol Xl] 25 mg PO BID 10/14/12 Adalimumab [Humira] 40 mg SQ UD 02/03/17 Cyanocobalamin (Vitamin B-12) [Vitamin B-12 (1000 mcg sublingual)] 1,000 mcg PO DAILY 02/03/17 Oxybutynin Chloride [Ditropan Xl] 15 mg PO DAILY 02/03/17 Tamsulosin [Flomax] 0.4 mg PO DAILY 02/03/17 Objective - Vital Signs/Intake & Output Vital Signs: Vital Signs x48h Temp Pulse Resp BP Pulse Ox 02/05/17 07:43 36.8 C 65 18 107/61 95 02/05/17 04:59 37.8 C H 78 20 108/67 94 Intake & Output: Intake & Output 02/02/17 02/03/17 02/04/17 02/05/17 23:59 23:59 23:59 23:59 Intake Total 1720 4633 920 Output Total 330 925 400 Balance 1390 3708 520 - Objective General Appearance: positive: No acute distress, Alert. negative: Lethargic Eyes Bilateral: positive: Normal inspection, PERRL. negative: No lid inflammation, Conjunctivae nml ENT: positive: ENT inspection nml, Pharynx nml, No signs of dehydration. negative: Purulent nasal drainage, Pharyngeal erythema Neck: positive: Nml inspection, Thyroid nml, Trachea midline. negative: Thyromegaly, Lymphadenopathy (R), Lymphadenopathy (L), Stiff neck, Swelling/ bruising, Tracheal deviation Respiratory: positive: Chest non-tender, No respiratory distress, Breath sounds nml. negative: Wheezes, Rales, Rhonchi Cardiovascular: positive: Regular rate & rhythm, No murmur, No gallop. negative : Extrasystoles, Tachycardia, Bradycardia, Systolic murmur, Diastolic murmur Peripheral Pulses: 2+ Radial (R), 2+ Radial (L), 2+ Dorsalis pedis (R), 2+ Dorsalis pedis (L) Abdomen: positive: Non-tender, Nml bowel sounds, No distention. negative: Tenderness, Guarding, Rebound Back: positive: Nml inspection. negative: CVA tenderness (R), CVA tenderness (L ) Skin: positive: Color nml, Warm, Dry. negative: Diaphoresis, Pallor, Skin rash Extremities: positive: Non-tender, Full ROM, Nml appearance. negative: Pedal edema, Calf tenderness, Praveen's sign/cords Neurologic/Psychiatric: positive: Oriented x3, Motor nml, Sensation nml, Mood/ affect nml. negative: Sensory loss, Facial droop, Slurred/abnml speech, Depressed mood/affect - Lab Results Fish Bones: 02/05/17 09:23 02/05/17 01:27 Other Labs: Lab Results x24hrs 02/05/17 02/05/17 02/05/17 Range/Units 09:23 01:27 01:27 WBC 5.1 (4.8-10.8) x10^3/uL RBC 3.86 L (4.70-6.10) 10^6/uL Hgb 12.3 L 12.2 L (14.0-18.0) g/dL Hct 36.2 L 36.3 L (42.0-52.0) % MCV 94.0 (80.0-94.0) fL MCH 31.6 H (27.0-31.0) pg MCHC 33.6 (32.0-36.0) g/dL RDW 14.0 (12.0-15.0) % Plt Count 86 L (130-450) 10^3/uL MPV 9.4 (7.4-11.4) fL Neut # 3.7 (1.5-6.6) 10^3/uL Lymph # 0.7 L (1.5-3.5) 10^3/uL [place] # 0.7 (0.0-1.0) 10^3/uL Eos # 0.0 (0.0-0.7) 10^3/uL Baso # 0.0 (0.0-0.1) 10^3/uL Absolute Nucleated RBC 0.00 x10^3/uL Nucleated RBCs 0.0 /100WBC Sodium 136 (135-145) mmol/L Potassium 3.3 L (3.5-5.0) mmol/L Chloride 112 H (101-111) mmol/L Carbon Dioxide 18 L (21-32) mmol/L Anion Gap 6.0 (6-13) BUN 29 H (6-20) mg/dL Creatinine 2.5 H (0.6-1.2) mg/dL Estimated GFR (MDRD) 26 L (>89) Glucose 100 (70-100) mg/dL Uric Acid (2.6-7.2) mg/dL Calcium 7.6 L (8.5-10.3) mg/dL Total Bilirubin 0.5 (0.2-1.0) mg/dL AST 46 H (10-42) IU/L ALT 36 (10-60) IU/L Alkaline Phosphatase 62 (42-121) IU/L Total Protein 6.1 L (6.7-8.2) g/dL Albumin 2.9 L (3.2-5.5) g/dL Globulin 3.2 (2.1-4.2) g/dL Albumin/Globulin Ratio 0.9 L (1.0-2.2) 02/04/17 02/04/17 Range/Units 17:11 09:47 WBC (4.8-10.8) x10^3/uL RBC (4.70-6.10) 10^6/uL Hgb 12.7 L (14.0-18.0) g/dL Hct 38.1 L (42.0-52.0) % MCV (80.0-94.0) fL MCH (27.0-31.0) pg MCHC (32.0-36.0) g/dL RDW (12.0-15.0) % Plt Count (130-450) 10^3/uL MPV (7.4-11.4) fL Neut # (1.5-6.6) 10^3/uL Lymph # (1.5-3.5) 10^3/uL [place] # (0.0-1.0) 10^3/uL Eos # (0.0-0.7) 10^3/uL Baso # (0.0-0.1) 10^3/uL Absolute Nucleated RBC x10^3/uL Nucleated RBCs /100WBC Sodium (135-145) mmol/L Potassium (3.5-5.0) mmol/L Chloride (101-111) mmol/L Carbon Dioxide (21-32) mmol/L Anion Gap (6-13) BUN (6-20) mg/dL Creatinine (0.6-1.2) mg/dL Estimated GFR (MDRD) (>89) Glucose (70-100) mg/dL Uric Acid 7.4 H (2.6-7.2) mg/dL Calcium (8.5-10.3) mg/dL Total Bilirubin (0.2-1.0) mg/dL AST (10-42) IU/L ALT (10-60) IU/L Alkaline Phosphatase (42-121) IU/L Total Protein (6.7-8.2) g/dL Albumin (3.2-5.5) g/dL Globulin (2.1-4.2) g/dL Albumin/Globulin Ratio (1.0-2.2) Assessment/Plan - Problem List (1) Pneumonia Impression: (1) Pneumonia Conclusion/Plan: Temperature is 36.8 today morning. pt feel much better. no SOB, room air with SO2 95%, lung sound better. WBC down to normal continue current treatment will image study again tomorrow or after tomorrow, per radiologist recommendation. CT of chest reveals left lung pneumonia, will follow up image study to R/O malignancy repeat blood culture since pt continue to have fever, and just came inpatient last night. will follow up the test result continue with rocephin and azithromycin CXR reveals left lung lower lobe pneumonia. pt is living at home, no recent traveling blood and sputum culture, follow up the result rocephin and azithyromycion, will adjust dosage with renal insufficiency Qualifiers: Pneumonia type: due to unspecified organism Laterality: left Lung location: lower lobe of lung Qualified Code(s): J18.1 - Lobar pneumonia, unspecified organism (2) Fever Conclusion/Plan: no fever at this morning, great improvement continue current treatment, closely monitor still has fever, and chill. pt state he feel much better. closely monitor first 48 hours. Pt's lactic acid <0.5, on IVF 125, and antibiotics it appear caused by pneumonia, UA negative for UTI, lactic acid less then 0.4, slight elevated WBC Tylenol PRN IVF daily lab test of CBC and CMP (3) Acute on chronic renal insufficiency Conclusion/Plan: It seems like chronic CKD CPK normal, US of abdomen reveal unremarkable to kidney, bladder continue IVF, lab test test CPK. IVF daily lab to check kidney function hold nephrotoxic agents, and hydration (4) Hematuria Conclusion/Plan: resolved UA reveals moderate bloody urine, pt with history of prostate, bladder, and kidney caner, HGB is normal. US of kidney, bladder will follow up H&H (5) Hemoptysis Conclusion/Plan: no more pt state it is better"just a tinny bit." CT reveals left pneumonia, but will follow up another image study to r/o malignancy with pt's history of cancer, and smoking history CT of chest, will follow up (6) HTN (hypertension) Conclusion/Plan: stable, resume home meds (7) Crohns disease Conclusion/Plan: out patient management pt denies abdominal pain, n/v/d Humira is scheduled another two weeks, pt was given on last week, hold Humira now. (8) Hypokalemia Conclusion/Plan: replacement on today K3.3 K3.4, replacement of potassium K is 3 today, replacement of potassium, recheck potassium daily (9) black stool pt report he did not have more. recheck Occult blood test positive on yesterday test of occult blood Occu blood staining test, if positive, will consult with surgeon. Now HGB 14.1, stable Monitor H&H (10) diarrhea better, negative C.Diff test sent sample for C.Diff PCR, follow up the result. continue IVF Qualifiers: Pneumonia type: due to unspecified organism Laterality: left Lung location: lower lobe of lung Qualified Code(s): J18.1 - Lobar pneumonia, unspecified organism
[2017-02-05] MEDS: AZITHROMYCIN INJ 500 MG in SODIUM CHLORIDE 0.9% 250 ML IV SCH (10:56)
[2017-02-05] MEDS ORDERED: POTASSIUM CHLORIDE 20 MEQ TABLET PO SCH (11:00)
[2017-02-05 17:11] LABS: HCT - HEMATOCRIT 37.9 % (42.0-52.0); HGB - HEMOGLOBIN 12.7 g/dL (14.0-18.0)
[2017-02-06] MEDS: SODIUM CHLORIDE 0.9% 1,000 ML IV SCH ×3 (02:22→19:35)
[2017-02-06] MEDS: OXYBUTYNIN 5MG TABLET PO SCH ×3 (05:43→21:08)
[2017-02-06 06:01] LABS: BASOPHILS % (AUTO) 0.4 %; EOSINOPHILS # (AUTO) 0.1 10^3/uL (0.0-0.7); EOSINOPHILS % (AUTO) 1.3 %; HCT - HEMATOCRIT 35.9 % (42.0-52.0); HGB - HEMOGLOBIN 12.2 g/dL (14.0-18.0); LYMPHOCYTES # (AUTO) 0.6 10^3/uL (1.5-3.5); LYMPHOCYTES % (AUTO) 14.9 %; MEAN CORPUSCULAR HEMOGLOBIN 31.9 pg (27.0-31.0); MEAN CORPUSCULAR VOLUME 93.6 fL (80.0-94.0); MEAN PLATELET VOLUME 9.9 fL (7.4-11.4); MONOCYTES # (AUTO) 0.7 10^3/uL (0.0-1.0); MONOCYTES % (AUTO) 17.2 %; NEUTROPHILS # (AUTO) 2.7 10^3/uL (1.5-6.6); NEUTROPHILS % (AUTO) 66.2 %; RED BLOOD COUNT 3.84 10^6/uL (4.70-6.10); RED CELL DISTRIBUTION WIDTH 13.9 % (12.0-15.0); UNCORRECTED WHITE BLOOD COUNT 4.1 x10^3/uL; WHITE BLOOD COUNT 4.1 x10^3/uL (4.8-10.8)
[2017-02-06 06:20] LABS: ALBUMIN/GLOBULIN RATIO 0.8 (1.0-2.2); BILIRUBIN,TOTAL 0.6 mg/dL (0.2-1.0); CALCIUM 8.1 mg/dL (8.5-10.3); POTASSIUM 3.3 mmol/L (3.5-5.0); TOTAL PROTEIN 6.1 g/dL (6.7-8.2)
[2017-02-06] MEDS: SODIUM CHLORIDE FLUSH 0.9% 10 ML SYRINGE IVP SCH ×3 (06:31→21:08)
[2017-02-06] MEDS: POTASSIUM CHLOR 10 MEQ/100 ML 100 ML IV SCH ×2 (08:54→09:48)
[2017-02-06] MEDS: METOPROLOL SUCCINATE 25 MG TABLET PO SCH ×2 (08:58→21:08)
[2017-02-06] MEDS: ALLOPURINOL 100 MG TABLET PO SCH (08:59)
[2017-02-06] MEDS: FAMOTIDINE 20 MG TABLET PO SCH (08:59)
[2017-02-06] MEDS: TAMSULOSIN 0.4 MG CAPSULE PO SCH (08:59)
[2017-02-06] MEDS: CYANOCOBALAMIN 500 MCG TABLET PO SCH (09:00)
[2017-02-06] MEDS: cefTRIAXone 1 GM in SODIUM CHLORIDE 0.9% MINIBAG 100 ML IV SCH (09:00)
[2017-02-06] MEDS: CALCIUM CITRATE 250 MG TABLET PO SCH (09:00)
[2017-02-06] MEDS: POLYETHYLENE GLYCOL 3350 17 GM PACKET PO SCH (09:02)
--- NOTE | 2017-02-06 10:15 | PROVIDER PROGRESS NOTE ---
Subjective - Prog Note Date Prog Note Date: 02/06/17 - Subjective Pt reports feeling: Improved Subjective: pt state he feels much better. His temperature is above 37 degree but not fever. Pt's blood culture, sputum culture are negative as far. Occult stool test negative for blood. plan CT of chest tomorrow and D/C home, if pt is stable. Current Medications - Current Medications Current Medications: Active Medications Acetaminophen (Tylenol) 650 mg PO Q4HR PRN PRN Reason: Pain 1 to 4 Last Admin: 02/05/17 15:47 Dose: 650 mg Allopurinol (Zyloprim) 100 mg PO DAILY [facility] Last Admin: 02/06/17 08:59 Dose: 100 mg Calcium Citrate () 250 mg PO DAILY [facility] Last Admin: 02/06/17 09:00 Dose: 250 mg Cyanocobalamin (Vitamin B-12) 1,000 mcg PO DAILY [facility] Last Admin: 02/06/17 09:00 Dose: 1,000 mcg Famotidine (Pepcid) 20 mg PO DAILY [facility] Last Admin: 02/06/17 08:59 Dose: 20 mg Azithromycin 500 mg/ Sodium (Chloride) 250 mls @ 250 mls/hr IV DAILY [facility] Last Admin: 02/05/17 10:56 Dose: 250 mls/hr Sodium Chloride (Normal Saline 0.9%) 1,000 mls @ 125 mls/hr IV .Q8H [facility] Last Admin: 02/06/17 02:22 Dose: 125 mls/hr Ceftriaxone Sodium 1 gm/ (Sodium Chloride) 100 mls @ 200 mls/hr IV DAILY [facility] Last Admin: 02/06/17 09:00 Dose: 200 mls/hr Metoprolol Succinate (Toprol Xl) 25 mg PO BID [facility] Last Admin: 02/06/17 08:58 Dose: 25 mg Ondansetron HCl (Zofran Inj) 4 mg IVP Q6HR PRN PRN Reason: Nausea / Vomiting Oxybutynin Chloride (Ditropan) 5 mg PO TID [facility] Last Admin: 02/06/17 05:43 Dose: 5 mg Polyethylene Glycol (Miralax) 17 gm PO DAILY [facility] Last Admin: 02/06/17 09:02 Dose: Not Given Sodium Chloride (Normal Saline Flush 0.9%) 10 ml IVP PRN PRN PRN Reason: NEEDED PER PROVIDER ORDERS Last Admin: 02/03/17 22:54 Dose: 10 ml Sodium Chloride (Normal Saline Flush 0.9%) 10 ml IVP Q8HR [facility] Last Admin: 02/06/17 06:31 Dose: Not Given Tamsulosin HCl (Flomax) 0.4 mg PO DAILY [facility] Last Admin: 02/06/17 08:59 Dose: 0.4 mg Allopurinol [Zyloprim] 100 mg PO DAILY 10/14/12 Metoprolol Succinate [Toprol Xl] 25 mg PO BID 10/14/12 Adalimumab [Humira] 40 mg SQ UD 02/03/17 Cyanocobalamin (Vitamin B-12) [Vitamin B-12 (1000 mcg sublingual)] 1,000 mcg PO DAILY 02/03/17 Oxybutynin Chloride [Ditropan Xl] 15 mg PO DAILY 02/03/17 Tamsulosin [Flomax] 0.4 mg PO DAILY 02/03/17 Objective - Vital Signs/Intake & Output Reviewed Vital Signs: Yes Vital Signs: Vital Signs x48h Temp Pulse Resp BP Pulse Ox 02/06/17 08:04 37.3 C 70 22 117/79 94 02/06/17 05:00 37.3 C 73 18 105/83 H 93 Intake & Output: Intake & Output 02/03/17 02/04/17 02/05/17 02/06/17 23:59 23:59 23:59 23:59 Intake Total 1720 4633 4262 2120 Output Total 957 521 1925 1050 Balance 1390 3708 3062 1070 - Objective General Appearance: positive: No acute distress, Alert. negative: Lethargic Eyes Bilateral: positive: Normal inspection, PERRL. negative: No lid inflammation, Conjunctivae nml ENT: positive: ENT inspection nml, Pharynx nml, No signs of dehydration. negative: Purulent nasal drainage, Pharyngeal erythema Neck: positive: Nml inspection, Thyroid nml, Trachea midline. negative: Thyromegaly, Lymphadenopathy (R), Lymphadenopathy (L) Respiratory: positive: Chest non-tender, No respiratory distress, Other ( diminished lung sound at bilateral lower lobe). negative: Wheezes, Rales, Rhonchi Cardiovascular: positive: Regular rate & rhythm, No murmur, No gallop. negative : Tachycardia, Bradycardia, Systolic murmur, Diastolic murmur Peripheral Pulses: 2+ Radial (R), 2+ Radial (L), 2+ Dorsalis pedis (R), 2+ Dorsalis pedis (L) Abdomen: positive: Non-tender, Nml bowel sounds, No distention. negative: Tenderness, Guarding, Rebound Back: positive: Nml inspection. negative: CVA tenderness (R), CVA tenderness (L ) Skin: positive: Color nml, No rash, Warm, Dry. negative: Cyanosis, Diaphoresis , Pallor Extremities: positive: Non-tender, Full ROM, Nml appearance. negative: Calf tenderness, Praveen's sign/cords Neurologic/Psychiatric: positive: Oriented x3, Motor nml, Sensation nml, Mood/ affect nml. negative: Sensory loss, Facial droop, Slurred/abnml speech, Depressed mood/affect - Lab Results Fish Bones: 02/06/17 05:23 02/06/17 05:23 Other Labs: Lab Results x24hrs 02/06/17 02/06/17 02/05/17 Range/Units 05:23 05:23 17:08 WBC 4.1 L (4.8-10.8) x10^3/uL RBC 3.84 L (4.70-6.10) 10^6/uL Hgb 12.2 L 12.7 L (14.0-18.0) g/dL Hct 35.9 L 37.9 L (42.0-52.0) % MCV 93.6 (80.0-94.0) fL MCH 31.9 H (27.0-31.0) pg MCHC 34.0 (32.0-36.0) g/dL RDW 13.9 (12.0-15.0) % Plt Count 100 L (130-450) 10^3/uL MPV 9.9 (7.4-11.4) fL Neut # 2.7 (1.5-6.6) 10^3/uL Lymph # 0.6 L (1.5-3.5) 10^3/uL [place] # 0.7 (0.0-1.0) 10^3/uL Eos # 0.1 (0.0-0.7) 10^3/uL Baso # 0.0 (0.0-0.1) 10^3/uL Absolute Nucleated RBC 0.00 x10^3/uL Nucleated RBCs 0.0 /100WBC Sodium 138 (135-145) mmol/L Potassium 3.3 L (3.5-5.0) mmol/L Chloride 112 H (101-111) mmol/L Carbon Dioxide 18 L (21-32) mmol/L Anion Gap 8.0 (6-13) BUN 22 H (6-20) mg/dL Creatinine 2.0 H (0.6-1.2) mg/dL Estimated GFR (MDRD) 33 L (>89) Glucose 102 H (70-100) mg/dL Calcium 8.1 L (8.5-10.3) mg/dL Total Bilirubin 0.6 (0.2-1.0) mg/dL AST 109 H (10-42) IU/L ALT 76 H (10-60) IU/L Alkaline Phosphatase 97 (42-121) IU/L Total Protein 6.1 L (6.7-8.2) g/dL Albumin 2.7 L (3.2-5.5) g/dL Globulin 3.4 (2.1-4.2) g/dL Albumin/Globulin Ratio 0.8 L (1.0-2.2) Assessment/Plan - Problem List (1) Pneumonia Impression: (1) Pneumonia Conclusion/Plan: fever is controlled but one spot to 37.9 degree and above 37 in most measure. negative test of blood and sputum culture as far continue treatment, follow up CT of chest. Temperature is 36.8 today morning. pt feel much better. no SOB, room air with SO2 95%, lung sound better. WBC down to normal continue current treatment will image study again tomorrow or after tomorrow, per radiologist recommendation. CT of chest reveals left lung pneumonia, will follow up image study to R/O malignancy repeat blood culture since pt continue to have fever, and just came inpatient last night. will follow up the test result continue with rocephin and azithromycin CXR reveals left lung lower lobe pneumonia. pt is living at home, no recent traveling blood and sputum culture, follow up the result rocephin and azithyromycion, will adjust dosage with renal insufficiency Qualifiers: Pneumonia type: due to unspecified organism Laterality: left Lung location: lower lobe of lung Qualified Code(s): J18.1 - Lobar pneumonia, unspecified organism (2) Fever Conclusion/Plan: no fever above 38 degreee no fever at this morning, great improvement continue current treatment, closely monitor still has fever, and chill. pt state he feel much better. closely monitor first 48 hours. Pt's lactic acid <0.5, on IVF 125, and antibiotics it appear caused by pneumonia, UA negative for UTI, lactic acid less then 0.4, slight elevated WBC Tylenol PRN IVF daily lab test of CBC and CMP (3) Acute on chronic renal insufficiency Conclusion/Plan: much better BUN and creatinine test continue hydration It seems like chronic CKD CPK normal, US of abdomen reveal unremarkable to kidney, bladder continue IVF, lab test test CPK. IVF daily lab to check kidney function hold nephrotoxic agents, and hydration (4) Hematuria Conclusion/Plan: resolved UA reveals moderate bloody urine, pt with history of prostate, bladder, and kidney caner, HGB is normal. US of kidney, bladder will follow up H&H (5) Hemoptysis Conclusion/Plan: no more pt state it is better"just a tinny bit." CT reveals left pneumonia, but will follow up another image study to r/o malignancy with pt's history of cancer, and smoking history CT of chest, will follow up (6) HTN (hypertension) Conclusion/Plan: stable, resume home meds (7) Crohns disease Conclusion/Plan: out patient management pt denies abdominal pain, n/v/d Humira is scheduled another two weeks, pt was given on last week, hold Humira now. (8) Hypokalemia Conclusion/Plan: replacement on today K3.3 K3.4, replacement of potassium K is 3 today, replacement of potassium, recheck potassium daily (9) black stool resolved pt report he did not have more. recheck Occult blood test positive on yesterday test of occult blood Occu blood staining test, if positive, will consult with surgeon. Now HGB 14.1, stable Monitor H&H (10) diarrhea resolved better, negative C.Diff test sent sample for C.Diff PCR, follow up the result. continue IVF Qualifiers: Pneumonia type: due to unspecified organism Laterality: left Lung location: lower lobe of lung Qualified Code(s): J18.1 - Lobar pneumonia, unspecified organism
[2017-02-06] MEDS: AZITHROMYCIN INJ 500 MG in SODIUM CHLORIDE 0.9% 250 ML IV SCH (11:05)
[2017-02-06] MEDS: POTASSIUM CHLORIDE 20 MEQ TABLET PO SCH (19:35)
[2017-02-07] MEDS: SODIUM CHLORIDE 0.9% 1,000 ML IV SCH (03:15)
[2017-02-07] MEDS: SODIUM CHLORIDE FLUSH 0.9% 10 ML SYRINGE IVP SCH (03:35)
[2017-02-07] MEDS: OXYBUTYNIN 5MG TABLET PO SCH (05:28)
[2017-02-07 05:54] LABS: BASOPHILS % (AUTO) 0.8 %; EOSINOPHILS # (AUTO) 0.1 10^3/uL (0.0-0.7); EOSINOPHILS % (AUTO) 3.7 %; HCT - HEMATOCRIT 35.6 % (42.0-52.0); HGB - HEMOGLOBIN 11.9 g/dL (14.0-18.0); LYMPHOCYTES # (AUTO) 0.6 10^3/uL (1.5-3.5); LYMPHOCYTES % (AUTO) 17.8 %; MEAN CORPUSCULAR HEMOGLOBIN 31.4 pg (27.0-31.0); MEAN CORPUSCULAR HGB CONC 33.3 g/dL (32.0-36.0); MEAN CORPUSCULAR VOLUME 94.4 fL (80.0-94.0); MEAN PLATELET VOLUME 9.4 fL (7.4-11.4); MONOCYTES # (AUTO) 0.5 10^3/uL (0.0-1.0); MONOCYTES % (AUTO) 15.2 %; NEUTROPHILS # (AUTO) 2.2 10^3/uL (1.5-6.6); NEUTROPHILS % (AUTO) 62.5 %; NUCLEATED RED BLOOD CELLS AUTO 0.2 /100WBC; RED BLOOD COUNT 3.77 10^6/uL (4.70-6.10); RED CELL DISTRIBUTION WIDTH 13.9 % (12.0-15.0); UNCORRECTED WHITE BLOOD COUNT 3.6 x10^3/uL; WHITE BLOOD COUNT 3.6 x10^3/uL (4.8-10.8)
[2017-02-07 06:13] LABS: ALBUMIN/GLOBULIN RATIO 0.9 (1.0-2.2); BILIRUBIN,TOTAL 0.4 mg/dL (0.2-1.0); CREATININE 1.8 mg/dL (0.6-1.2); MAGNESIUM 1.8 mg/dL (1.7-2.8); POTASSIUM 3.6 mmol/L (3.5-5.0); TOTAL PROTEIN 6.2 g/dL (6.7-8.2)
[2017-02-07 08:44] VITALS: BP 122/75
[2017-02-07] MEDS: CALCIUM CITRATE 250 MG TABLET PO SCH (09:21)
[2017-02-07] MEDS: FAMOTIDINE 20 MG TABLET PO SCH (09:21)
[2017-02-07] MEDS: CYANOCOBALAMIN 500 MCG TABLET PO SCH (09:21)
[2017-02-07] MEDS: POLYETHYLENE GLYCOL 3350 17 GM PACKET PO SCH (09:22)
[2017-02-07] MEDS: TAMSULOSIN 0.4 MG CAPSULE PO SCH (09:22)
[2017-02-07] MEDS: METOPROLOL SUCCINATE 25 MG TABLET PO SCH (09:22)
[2017-02-07] MEDS: ALLOPURINOL 100 MG TABLET PO SCH (09:22)
[2017-02-07] MEDS: cefTRIAXone 1 GM in SODIUM CHLORIDE 0.9% MINIBAG 100 ML IV SCH (09:23)
[2017-02-07] MEDS: POTASSIUM CHLORIDE 20 MEQ TABLET PO SCH (09:55)
[2017-02-07] MEDS: AZITHROMYCIN INJ 500 MG in SODIUM CHLORIDE 0.9% 250 ML IV SCH (10:10)
--- NOTE | 2017-02-07 10:24 | Discharge Plan ---
Discharge Plan Disposition: 01 Home, Self Care Condition: Stable Prescriptions: Azithromycin 250 mg PO DAILY #2 tablet Diet: Regular Activity Restrictions: No Restrictions Shower Restrictions: No Driving Restrictions: No No Smoking: If you smoke, Please STOP! Call for help. Follow-up with: Tricia Martinez MD [Primary Care Provider] -
--- NOTE | 2017-02-07 10:31 | DISCHARGE SUMMARY ---
Discharge Summary Admit Date: 02/03/17 Discharge Date: 02/07/17 Discharging Provider: Medardo Landa PA-C Primary Care Provider: Tricia Jarrell MD Condition at Discharge: Stable Discharge Disposition: 01 Home, Self Care - DIAGNOSES Admission Diagnoses: (1) Pneumonia Conclusion/Plan: CXR reveals left lung lower lobe pneumonia. pt is living at home, no recent traveling blood and sputum culture, follow up the result rocephin and azithyromycion, will adjust dosage with renal insufficiency Qualifiers: Pneumonia type: due to unspecified organism Laterality: left Lung location: lower lobe of lung Qualified Code(s): J18.1 - Lobar pneumonia, unspecified organism (2) Fever Conclusion/Plan: it appear caused by pneumonia, UA negative for UTI, lactic acid less then 0.4, slight elevated WBC Tylenol PRN IVF daily lab test of CBC and CMP (3) Acute on chronic renal insufficiency Conclusion/Plan: test CPK. IVF daily lab to check kidney function hold nephrotoxic agents, and hydration (4) Hematuria Conclusion/Plan: UA reveals moderate bloody urine, pt with history of prostate, bladder, and kidney caner, HGB is normal. US of kidney, bladder will follow up H&H (5) Hemoptysis Conclusion/Plan: with pt's history of cancer, and smoking history CT of chest, will follow up (6) HTN (hypertension) Conclusion/Plan: stable, resume home meds (7) Crohns disease Conclusion/Plan: pt denies abdominal pain, n/v/d Humira is scheduled another two weeks, pt was given on last week, hold Humira now. (8) Hypokalemia Conclusion/Plan: K is 3 today, replacement of potassium, recheck potassium daily (9) DVT prophylaxis Conclusion/Plan: pt walk without limitation, SCD only now Discharge Diagnoses with Status of Each Condition: (1) Pneumonia Conclusion/Plan: Chest CT was consistent with Dx of Left lower lobe pneumonia. PT was treated with Azithromycin and Rocephin. He improved during stay. There were few low grade temps recorded but these had resolved. Sputum and blood cultures did not show growth at time of discharge. Plan PT discharged home. Encouraged hydration. Continue Azithromycin for 2 more days/ Followup with PCP in 1-2 weeks Radiology recommended followup imaging as needed to confirm resolution of pneumonia and rule out malignancy Qualifiers: Pneumonia type: due to unspecified organism Laterality: left Lung location: lower lobe of lung Qualified Code(s): J18.1 - Lobar pneumonia, unspecified organism (2) Fever Conclusion/Plan: Secondary to pneumonia Resolved prior to discharge (3) Acute on chronic renal insufficiency Conclusion/Plan: Exacerbation due to illness and hypovolemia. Improved with fluid resuscitation. PT should follow up with PCP to retest as needed (4) Hematuria Conclusion/Plan: Resolved prior to discharge. (5) Hemoptysis Conclusion/Plan: Resolved prior to discharge Consider CT chest in 2-3 months to rule out malignancy (6) HTN (hypertension) Conclusion/Plan: Controlled on home medications (7) Crohns disease Conclusion/Plan: Asymptomatic during admission Resume home medications on discharge (8) Hypokalemia Conclusion/Plan: Replaced during admission (9) black stool Resolved. Initial occult stool study positive 02/04/17. Follow up study negative on ' Followup with PCP for further evaluation (10) diarrhea resolved Negative C.Diff test Qualifiers: Pneumonia type: due to unspecified organism Laterality: left Lung location: lower lobe of lung Qualified Code(s): J18.1 - Lobar pneumonia, unspecified organism - HPI History of Present Illness: PT presented with fever, productive cough, dyspnea, and weakness over night. He reported fever at home of 104. He noted blood streaking in sputum and hematuria. PT was initially seen in the ED. - HOSPITAL COURSE Hospital Course: Chest xray in the ED revealed a left lower lobe pneumonia. His UA was abnormal for blood and but no UTI present. PT was found to have low K on labs and this as replaced. PT was started on antibiotics for pneumonia. Sputum and Blood cultures were obtained. These returned negative for growth. His respiratory status improved. Renal function showed acute on chronic renal failure. He appeared hypovolemic on exam and by remaining labs. Pt did have reported hematuria which cleared. He returned to baseline with IV fluids although remained with elevated creatinine of 1.81. PT developed black stool which was positive for blood. This resolved within 1 day and did not require transfusion. He also had diarrhea which was tested and found negative for C-diff. At time of discharge the patient was doing well. oxygenation was stable on room air and did not require home O2. At discharge he was sent home on remaining course of azithromycin. - ALLERGIES Allergies/Adverse Reactions: Allergies Allergy/AdvReac Type Severity Reaction Status Date / Time No Known Drug Allergies Allergy Verified 02/04/17 13:22 - MEDICATIONS Home Medications: Ambulatory Orders Medication Instructions Recorded Confirmed Allopurinol [Zyloprim] 100 mg PO DAILY 10/14/12 02/03/17 Metoprolol Succinate [Toprol Xl] 25 mg PO BID 10/14/12 02/03/17 Adalimumab [Humira] 40 mg SQ UD 02/03/17 02/03/17 Cyanocobalamin (Vitamin B-12) 1,000 mcg PO DAILY 02/03/17 02/03/17 [Vitamin B-12 (1000 mcg sublingual)] Oxybutynin Chloride [Ditropan Xl] 15 mg PO DAILY 02/03/17 02/03/17 Tamsulosin [Flomax] 0.4 mg PO DAILY 02/03/17 02/03/17 Acetaminophen [Tylenol] 650 mg PO Q4HR PRN #0 tablet 02/07/17 Azithromycin 250 mg PO DAILY #2 tablet 02/07/17 - PHYSICAL EXAM AT DISCHARGE General Appearance: positive: No acute distress Eyes Bilateral: positive: Normal inspection, PERRL, EOMI ENT: positive: ENT inspection nml Neck: positive: No JVD Respiratory: positive: No respiratory distress, Rales Cardiovascular: positive: Regular rate & rhythm, No murmur, No gallop Peripheral Pulses: positive: 2+ Abdomen: positive: Non-tender, Nml bowel sounds, No distention Back: positive: Nml inspection Skin: positive: No rash, Warm, Dry Extremities: positive: Non-tender, Full ROM, No pedal edema Neurologic/Psychiatric: positive: Oriented x3, CN's nml (2-12) - LABS Result Diagrams: 02/07/17 05:31 02/07/17 05:31 - DIAGNOSTIC IMAGING Diagnostic Imaging Results: Final report reviewed - FOLLOW UP Follow Up: Followup with PCP in 1-2 weeks - TIME SPENT Time Spent in Discharge (Minutes): 30
== END 2017-02-07 11:56 | disposition home or self-care (01) | DRG 194 ==
LOC: ED 11:56 → MS2 15:30
PROVIDERS: ADMIT Nurse Practitioner Gerontology; ATTEND Physician Assistant
DX: J18.1 Lobar pneumonia, unspecified organism (principal); R09.02 Hypoxemia; E86.0 Dehydration; I10 Essential (primary) hypertension; K50.90 Crohn's disease, unspecified, without complications; R04.2 Hemoptysis; N17.9 Acute kidney failure, unspecified; E87.6 Hypokalemia; E86.1 Hypovolemia; I12.9 Hypertensive chronic kidney disease with stage 1 through stage 4 chronic kidney disease, or unspecified chronic kidney disease; N18.9 Chronic kidney disease, unspecified; R31.0 Gross hematuria; R19.7 Diarrhea, unspecified; R19.5 Other fecal abnormalities; M10.9 Gout, unspecified; Z85.46 Personal history of malignant neoplasm of prostate; Z85.528 Personal history of other malignant neoplasm of kidney; Z85.51 Personal history of malignant neoplasm of bladder; Z79.899 Other long term (current) drug therapy; Z90.5 Acquired absence of kidney; Z87.891 Personal history of nicotine dependence
CPT/HCPCS: 36415; 71020; 71250; 76770; 80053; 81001; 81003; 82270; 82550; 83605; 83690; 83735; 84484; 84550; 85014; 85018; 85025; 85610; 87040; 87070; 87086; 87205; 87493; 96365; 99283; 99284; 99285

== ENCOUNTER 2017-05-28 11:53 | Outpatient (CLI) | payer MEDICARE ==
[2017-05-28 12:51] LABS: BILIRUBIN,URINE NEGATIVE (NEGATIVE)
[2017-05-28 12:52] LABS: UR CULTURE IF IND NOT INDICATED; WBC,URINE 0-3 /HPF (0-3)
== END 2017-05-28 11:54 | disposition home or self-care (01) ==
LOC: LAB 11:53
PROVIDERS: ATTEND Urology
DX: R31.9 Hematuria, unspecified (principal)
CPT/HCPCS: 81001; 87086

== ENCOUNTER 2017-08-06 09:16 | Outpatient (CLI) | payer MEDICARE ==
--- NOTE | 2017-08-06 15:41 | CT Report ---
CT OF THE ABDOMEN AND PELVIS WITHOUT CONTRAST: 08/06/2017 CLINICAL INDICATION: History of nephrolithiasis, gross hematuria, history of right nephrectomy, prostate cancer, Crohn's disease. TECHNIQUE: Axial CT images of the abdomen and pelvis were obtained without oral or intravenous contrast. COMPARISON: 02/14/2015. FINDINGS: Limited evaluation of the lung bases is unremarkable. ABDOMEN: Postoperative changes of right nephrectomy and partial colectomy are noted. The left kidney demonstrates a 2 mm nonobstructing calculus in the lower pole. No perinephric stranding or hydronephrosis is present. No hydroureter is seen. The adrenal glands, spleen, pancreas and liver appear unremarkable, allowing for the lack of intravenous contrast enhancement. The gallbladder is not dilated. No bowel dilatation, free gas, or free fluid is present. No abdominal adenopathy is seen. PELVIS: Brachytherapy seeds are seen in the prostate bed. The urinary bladder appears unremarkable. No distal left hydroureter or ureterolithiasis is seen. Osseous structures demonstrate degenerative changes. IMPRESSION: SMALL NONOBSTRUCTING LEFT RENAL CALCULUS. NO HYDRONEPHROSIS OR PERINEPHRIC STRANDING. STABLE POSTOPERATIVE CHANGES. In accordance with CT protocol optimization, one or more of the following dose reduction techniques were utilized for this exam: automated exposure control, adjustment of mA and/or KV based on patient size, or use of iterative reconstructive technique. TD: 08/06/2017 15:40
== END 2017-08-06 09:17 | disposition home or self-care (01) ==
LOC: DI 09:16
PROVIDERS: ATTEND Urology
DX: N20.0 Calculus of kidney (principal); R31.0 Gross hematuria; Z85.51 Personal history of malignant neoplasm of bladder; Z85.46 Personal history of malignant neoplasm of prostate
CPT/HCPCS: 74176

== ENCOUNTER 2018-03-25 08:01 | Outpatient (CLI) | payer MEDICARE ==
[2018-03-25 12:03] LABS: BASOPHILS # (AUTO) 0.1 10^3/uL (0.0-0.1); BASOPHILS % (AUTO) 0.7 %; EOSINOPHILS # (AUTO) 0.2 10^3/uL (0.0-0.7); EOSINOPHILS % (AUTO) 2.9 %; LYMPHOCYTES # (AUTO) 1.2 10^3/uL (1.5-3.5); LYMPHOCYTES % (AUTO) 15.5 %; MEAN CORPUSCULAR HEMOGLOBIN 31.7 pg (27.0-31.0); MEAN CORPUSCULAR HGB CONC 34.7 g/dL (32.0-36.0); MEAN CORPUSCULAR VOLUME 91.4 fL (80.0-94.0); MEAN PLATELET VOLUME 8.9 fL (7.4-11.4); MONOCYTES # (AUTO) 0.7 10^3/uL (0.0-1.0); MONOCYTES % (AUTO) 8.9 %; NEUTROPHILS # (AUTO) 5.5 10^3/uL (1.5-6.6); PLT - PLATELET COUNT 172 10^3/uL (130-450); RED BLOOD COUNT 4.75 10^6/uL (4.70-6.10); RED CELL DISTRIBUTION WIDTH 13.1 % (12.0-15.0); WHITE BLOOD COUNT 7.6 x10^3/uL (4.8-10.8)
[2018-03-25 12:24] LABS: ALBUMIN 4.1 g/dL (3.2-5.5); ALBUMIN/GLOBULIN RATIO 1.2 (1.0-2.2); ALKALINE PHOSPHATASE 72 IU/L (42-121); ALT ALANINE AMINOTRANSFERASE 19 IU/L (10-60); AST ASPARTATE AMINOTRANSFERASE 20 IU/L (10-42); BILIRUBIN,TOTAL 1.2 mg/dL (0.2-1.0); BUN - BLOOD UREA NITROGEN 19 mg/dL (6-20); CARBON DIOXIDE - CO2 24 mmol/L (21-32); CHLORIDE 109 mmol/L (101-111); CHOL/HDL RATIO 3.5 (<5.0); CHOLESTEROL 110 mg/dL; CREATININE 1.9 mg/dL (0.6-1.2); GFR - MDRD 35 (>89); GLUCOSE 108 mg/dL (70-100); HDL CHOLESTEROL 31 mg/dL; LDL CHOLESTEROL,CALCULATED 43 mg/dL; LDL/HDL RATIO 1.4 (<3.6); SODIUM 139 mmol/L (135-145); TOTAL PROTEIN 7.4 g/dL (6.7-8.2); VLDL CHOLESTEROL 36 mg/dL
[2018-03-25 12:33] LABS: HB2 TOTAL 16.1 g/dL; HEMOGLOBIN A1C 0.5 g/dL
[2018-03-26 11:21] LABS: HEPATITIS C ANTIBODY NON-REACTIVE (NON-REACTIVE)
== END 2018-03-25 08:02 | disposition home or self-care (01) ==
LOC: LAB.F 08:01
PROVIDERS: ATTEND Internal Medicine
DX: Z11.59 Encounter for screening for other viral diseases (principal); R73.9 Hyperglycemia, unspecified; F32.9 Major depressive disorder, single episode, unspecified; R58 Hemorrhage, not elsewhere classified; I10 Essential (primary) hypertension; H91.90 Unspecified hearing loss, unspecified ear; K50.90 Crohn's disease, unspecified, without complications; N18.9 Chronic kidney disease, unspecified; N20.0 Calculus of kidney; C67.9 Malignant neoplasm of bladder, unspecified; C61 Malignant neoplasm of prostate; E78.5 Hyperlipidemia, unspecified; M10.9 Gout, unspecified; D69.6 Thrombocytopenia, unspecified; D64.9 Anemia, unspecified
CPT/HCPCS: 36415; 80053; 80061; 82607; 83036; 83721; 84550; 85025; 86803

== ENCOUNTER 2018-04-29 08:00 | Outpatient (CLI) | payer MEDICARE ==
[2018-04-29 18:24] LABS: CREATININE,URINE 117.8 mg/dL; PROTEIN/CREATININE RATIO,URINE 0.2 (<=0.2)
== END 2018-04-29 08:01 | disposition home or self-care (01) ==
LOC: LAB.R 08:00
PROVIDERS: ATTEND Internal Medicine Nephrology
DX: R80.9 Proteinuria, unspecified (principal)
CPT/HCPCS: 82570; 84156

== ENCOUNTER 2018-06-30 08:52 | Outpatient (CLI) | payer MEDICARE ==
[2018-06-30 10:57] LABS: HGB - HEMOGLOBIN 14.5 g/dL (14.0-18.0); MEAN CORPUSCULAR HGB CONC 33.6 g/dL (32.0-36.0); MEAN CORPUSCULAR VOLUME 92.5 fL (80.0-94.0); MEAN PLATELET VOLUME 9.6 fL (7.4-11.4); RED BLOOD COUNT 4.66 10^6/uL (4.70-6.10); RED CELL DISTRIBUTION WIDTH 14.4 % (12.0-15.0); WHITE BLOOD COUNT 6.7 x10^3/uL (4.8-10.8)
[2018-06-30 11:16] LABS: CALCIUM 8.8 mg/dL (8.5-10.3); CREATININE 1.8 mg/dL (0.6-1.2); PHOSPHORUS 2.9 mg/dL (2.5-4.6); URIC ACID 5.8 mg/dL (2.6-7.2)
== END 2018-06-30 08:53 | disposition home or self-care (01) ==
LOC: LAB.F 08:52
PROVIDERS: ATTEND Internal Medicine Nephrology
DX: N05.9 Unspecified nephritic syndrome with unspecified morphologic changes (principal); D70.9 Neutropenia, unspecified; D63.1 Anemia in chronic kidney disease; E83.30 Disorder of phosphorus metabolism, unspecified; N25.81 Secondary hyperparathyroidism of renal origin; M10.00 Idiopathic gout, unspecified site
CPT/HCPCS: 36415; 80048; 83970; 84100; 84550; 85027

== ENCOUNTER 2018-08-04 11:16 | Outpatient (CLI) | payer MEDICARE | END 2018-08-04 11:17 | disposition home or self-care (01) | LOC: LAB.F 11:16 | PROVIDERS: ATTEND Urology | DX: Z85.46 Personal history of malignant neoplasm of prostate (principal) | CPT/HCPCS: 36415; 84153 ==

== ENCOUNTER 2019-03-08 16:34 | Outpatient (CLI) | payer MEDICARE ==
--- NOTE | 2019-03-09 08:13 | XRAY Report ---
Reason: R KNEE PAIN Procedure Date: 03/08/2019 Accession Number: [id number] / [id number] Procedure: XR - Knee 3 View RT CPT Code: FULL RESULT: EXAM: RIGHT KNEE RADIOGRAPHY EXAM DATE: 03/08/2019 04:47 PM. CLINICAL HISTORY: Right knee pain COMPARISON: XR KNEE 3 VIEW 01/06/2008 12:40 PM. TECHNIQUE: 3 views. FINDINGS: Bones: There is a comminuted nondisplaced longitudinal patellar fracture. Minimal medial compartment joint space narrowing. Joints: Normal. No effusion. No subluxations. Soft Tissues: Moderate suprapatellar joint effusion IMPRESSION: There is a nondisplaced longitudinal comminuted patellar fracture with moderate joint effusion. RADIA
== END 2019-03-08 16:35 | disposition home or self-care (01) ==
LOC: DI 16:34
PROVIDERS: ATTEND Internal Medicine
DX: S82.024A Nondisplaced longitudinal fracture of right patella, initial encounter for closed fracture (principal); M25.461 Effusion, right knee

== ENCOUNTER 2019-06-29 07:40 | Outpatient (CLI) | payer MEDICARE ==
[2019-06-29 10:07] LABS: CALCIUM 8.7 mg/dL (8.5-10.3); CREATININE 1.8 mg/dL (0.6-1.2)
== END 2019-06-29 07:41 | disposition home or self-care (01) ==
LOC: LAB.S 07:40
PROVIDERS: ATTEND Internal Medicine Nephrology
DX: N05.9 Unspecified nephritic syndrome with unspecified morphologic changes (principal)
CPT/HCPCS: 36415; 80048

== ENCOUNTER 2019-07-29 08:43 | Outpatient (CLI) | payer MEDICARE ==
[2019-07-29 17:30] LABS: HB2 TOTAL 16.5 g/dL; HEMOGLOBIN A1C 0.59 g/dL; HEMOGLOBIN A1C % 5.4 % (4.6-6.2)
[2019-07-29 17:36] LABS: ALBUMIN 4.4 g/dL (3.2-5.5); ALBUMIN/GLOBULIN RATIO 1.4 (1.0-2.2); ALKALINE PHOSPHATASE 88 IU/L (42-121); ALT ALANINE AMINOTRANSFERASE 28 IU/L (10-60); AST ASPARTATE AMINOTRANSFERASE 28 IU/L (10-42); BILIRUBIN,TOTAL 0.9 mg/dL (0.2-1.0); BUN - BLOOD UREA NITROGEN 19 mg/dL (6-20); CALCIUM 9.1 mg/dL (8.5-10.3); CARBON DIOXIDE - CO2 24 mmol/L (21-32); CHLORIDE 111 mmol/L (101-111); CHOL/HDL RATIO 3.3 (<5.0); CHOLESTEROL 120 mg/dL; CREATININE 1.9 mg/dL (0.6-1.2); GFR - MDRD 35 (>89); GLUCOSE 107 mg/dL (70-100); HDL CHOLESTEROL 36 mg/dL; LDL CHOLESTEROL,CALCULATED 52 mg/dL; LDL/HDL RATIO 1.4 (<3.6); SODIUM 142 mmol/L (135-145); TOTAL PROTEIN 7.6 g/dL (6.7-8.2); URIC ACID 7.5 mg/dL (2.6-7.2); VLDL CHOLESTEROL 32 mg/dL
[2019-07-29 17:43] LABS: THYROID STIMULATING HORMONE 1.99 uIU/mL (0.34-5.60)
[2019-07-29 18:53] LABS: BASOPHILS # (AUTO) 0.1 10^3/uL (0.0-0.1); BASOPHILS % (AUTO) 0.7 %; EOSINOPHILS # (AUTO) 0.2 10^3/uL (0.0-0.7); EOSINOPHILS % (AUTO) 2.1 %; HGB - HEMOGLOBIN 16.2 g/dL (14.0-18.0); LYMPHOCYTES # (AUTO) 1.2 10^3/uL (1.5-3.5); LYMPHOCYTES % (AUTO) 14.8 %; MEAN CORPUSCULAR HEMOGLOBIN 31.5 pg (27.0-31.0); MEAN CORPUSCULAR HGB CONC 32.3 g/dL (32.0-36.0); MEAN CORPUSCULAR VOLUME 97.5 fL (80.0-94.0); MEAN PLATELET VOLUME 11.1 fL (7.4-11.4); MONOCYTES # (AUTO) 0.8 10^3/uL (0.0-1.0); MONOCYTES % (AUTO) 9.6 %; NEUTROPHILS # (AUTO) 5.8 10^3/uL (1.5-6.6); NEUTROPHILS % (AUTO) 72.2 %; PLT - PLATELET COUNT 142 10^3/uL (130-450); RED BLOOD COUNT 5.15 10^6/uL (4.70-6.10)
== END 2019-07-29 08:44 | disposition home or self-care (01) ==
LOC: LAB.S 08:43
PROVIDERS: ATTEND Internal Medicine
DX: I12.9 Hypertensive chronic kidney disease with stage 1 through stage 4 chronic kidney disease, or unspecified chronic kidney disease (principal); N18.9 Chronic kidney disease, unspecified; Z79.899 Other long term (current) drug therapy; E78.5 Hyperlipidemia, unspecified; D64.9 Anemia, unspecified; D69.6 Thrombocytopenia, unspecified; D72.819 Decreased white blood cell count, unspecified; R73.9 Hyperglycemia, unspecified; R53.83 Other fatigue; M10.9 Gout, unspecified; Z13.6 Encounter for screening for cardiovascular disorders; K50.90 Crohn's disease, unspecified, without complications
CPT/HCPCS: 36415; 80053; 80061; 82607; 83036; 83721; 84443; 84550; 85025

== ENCOUNTER 2020-02-02 09:39 | Outpatient (CLI) | payer MEDICARE | END 2020-02-02 09:40 | disposition home or self-care (01) | LOC: LAB.S 09:39 | PROVIDERS: ATTEND Urology | DX: Z87.442 Personal history of urinary calculi (principal) | CPT/HCPCS: 36415; 84132 ==

== ENCOUNTER 2020-08-21 10:02 | Outpatient (CLI) | payer MEDICARE ==
--- NOTE | 2020-08-21 10:58 | XRAY Report ---
PROCEDURE: Elbow 3 View LT INDICATIONS: LEFT ELBOW PAIN TECHNIQUE: 3 views of the elbow were acquired. COMPARISON: None FINDINGS: Bones: No fractures or dislocations. No suspicious bony lesions. There is a prominent olecranon sp ur with mild lucency at the origin. Soft tissues: No elbow joint effusion. No suspicious soft tissue calcifications. IMPRESSION: Prominent olecranon spur with lucency at the origin. This could represent degenerative change or area of superimposed nondisplaced fracture. Recommend correlation to point tenderness and interval imagin g follow-up as indicated. Reviewed by: Janene Caballero MD on 08/21/2020 10:57 AM PDT Approved by: Janene Caballero MD on 08/21/2020 10:57 AM PDT Station ID: [id number]
== END 2020-08-21 10:03 | disposition home or self-care (01) ==
LOC: DI 10:02
PROVIDERS: ATTEND Internal Medicine
DX: M77.8 Other enthesopathies, not elsewhere classified (principal)

== ENCOUNTER 2022-01-04 07:02 | Outpatient (CLI) | payer MEDICARE ==
[2022-01-04 14:48] LABS: BASOPHILS # (AUTO) 0.1 10^3/uL (0.0-0.1); BASOPHILS % (AUTO) 0.8 %; EOSINOPHILS # (AUTO) 0.2 10^3/uL (0.0-0.7); EOSINOPHILS % (AUTO) 2.2 %; HCT - HEMATOCRIT 49.1 % (42.0-52.0); HGB - HEMOGLOBIN 15.6 g/dL (14.0-18.0); LYMPHOCYTES # (AUTO) 1.7 10^3/uL (1.5-3.5); LYMPHOCYTES % (AUTO) 23.2 %; MEAN CORPUSCULAR HGB CONC 31.8 g/dL (32.0-36.0); MEAN CORPUSCULAR VOLUME 97.4 fL (80.0-94.0); MEAN PLATELET VOLUME 11.7 fL (7.4-11.4); MONOCYTES # (AUTO) 0.7 10^3/uL (0.0-1.0); MONOCYTES % (AUTO) 9.2 %; NEUTROPHILS # (AUTO) 4.6 10^3/uL (1.5-6.6); NEUTROPHILS % (AUTO) 64.3 %; PLT - PLATELET COUNT 136 10^3/uL (130-450); RED BLOOD COUNT 5.04 10^6/uL (4.70-6.10); RED CELL DISTRIBUTION WIDTH 13.4 % (12.0-15.0); WHITE BLOOD COUNT 7.2 x10^3/uL (4.8-10.8)
[2022-01-04 15:28] LABS: ALBUMIN 4.3 g/dL (3.2-5.5); ALBUMIN/GLOBULIN RATIO 1.5 (1.0-2.2); ALKALINE PHOSPHATASE 92 IU/L (42-121); ALT ALANINE AMINOTRANSFERASE 20 IU/L (10-60); AST ASPARTATE AMINOTRANSFERASE 20 IU/L (10-42); BILIRUBIN,TOTAL 0.7 mg/dL (0.2-1.0); BUN - BLOOD UREA NITROGEN 29 mg/dL (6-20); CALCIUM 9.1 mg/dL (8.5-10.3); CARBON DIOXIDE - CO2 24 mmol/L (21-32); CHLORIDE 108 mmol/L (101-111); CHOL/HDL RATIO 3.6 (<5.0); CHOLESTEROL 118 mg/dL; GFR - MDRD 33 (>89); GLUCOSE 147 mg/dL (70-100); HDL CHOLESTEROL 33 mg/dL; LDL CHOLESTEROL,CALCULATED 31 mg/dL; LDL/HDL RATIO 0.9 (<3.6); POTASSIUM 4.1 mmol/L (3.5-5.0); SODIUM 138 mmol/L (135-145); TOTAL PROTEIN 7.1 g/dL (6.7-8.2); TRIGLYCERIDES 268 mg/dL; URIC ACID 7.4 mg/dL (2.6-7.2); VLDL CHOLESTEROL 54 mg/dL
[2022-01-04 15:42] LABS: THYROID STIMULATING HORMONE 2.31 uIU/mL (0.34-5.60)
[2022-01-04 21:32] LABS: ESTIMATED AVERAGE GLUCOSE 100 mg/dL (70-100); HEMOGLOBIN A1c% 5.1 % (4.27-6.07)
== END 2022-01-04 07:03 | disposition home or self-care (01) ==
LOC: LAB.S 07:02
PROVIDERS: ATTEND Internal Medicine
DX: Z00.00 Encounter for general adult medical examination without abnormal findings (principal); D64.9 Anemia, unspecified; C44.91 Basal cell carcinoma of skin, unspecified; C67.9 Malignant neoplasm of bladder, unspecified; I12.9 Hypertensive chronic kidney disease with stage 1 through stage 4 chronic kidney disease, or unspecified chronic kidney disease; N18.9 Chronic kidney disease, unspecified; K50.90 Crohn's disease, unspecified, without complications; M10.9 Gout, unspecified; H91.90 Unspecified hearing loss, unspecified ear; Z86.010 Personal history of colon polyps; R73.9 Hyperglycemia, unspecified; E78.5 Hyperlipidemia, unspecified; R73.01 Impaired fasting glucose; D72.819 Decreased white blood cell count, unspecified; M19.90 Unspecified osteoarthritis, unspecified site; G62.9 Polyneuropathy, unspecified; C61 Malignant neoplasm of prostate; R55 Syncope and collapse; E53.8 Deficiency of other specified B group vitamins
CPT/HCPCS: 36415; 80053; 80061; 82607; 83036; 83721; 84443; 84550; 85025